=== PATIENT | male | born 1955 | race Two or more races ===

== ENCOUNTER 2023-09-12 19:56 | Emergency (ER) | payer OTHER, MEDICARE, SELFPAY ==
[2023-09-12 19:58] VITALS: BP 175/90
[2023-09-12 20:55] VITALS: BMI 36.5
--- NOTE | 2023-09-12 21:19 | ED.GENMED ---
History of Present Illness
General
Chief Complaint: Musculo-Skeletal Complaint
Source: patient
Exam Limitations: none
Time Seen by Provider: 09/12/23 20:43
History of Present Illness
History of Present Illness:
This is a 68 year old male that comes in with c/o right leg heaviness. State that he took a nap and when he got up his right leg felt heavy. States that the skin is tight and his leg is swollen. States that he has pain in the right lower back area
that goes into his buttocks and down the leg. Son states that patient has had this in the past and he had a blood clot. Patient is not on any blood thinners. Denies any fever, chills, chest pain, SOB, abd pain, nausea, vomiting, diarrhea, headache,
dizziness, urinary burning.
Past History
Past History
ED Past Medical History: HTN and Other (Chronic back pain, PE)
ED Past Surgical History: None
Social History
Tobacco: Non-smoker
Alcohol: None
Personal:
Living: with family
Family History
Family History: Negative Diabetes, Hypertension, Early CAD, Asthma or Cancer
Review of Systems
Review of Systems
All Other Systems: ROS reviewed and negative except as documented in HPI and ROS
Constitutional: Reports no symptoms; Denies fever or chills
EENT: Reports no symptoms
Respiratory: Reports no symptoms; Denies cough or trouble breathing
Cardiac: Reports no symptoms; Denies chest pain
ABD/GI: Reports no symptoms; Denies abdominal pain, nausea, vomiting or diarrhea
: Reports no symptoms; Denies dysuria, frequency or urgency
Musculoskeletal: Reports other (Right leg swelling)
Skin: Reports other (Right leg slightly darker then left)
Neurological: Reports no symptoms; Denies dizzy or headache
Psychiatric: Reports no symptoms
Phy Exam
General Physical Exam
General Presentation: well appearing and no apparent distress
General age: appears stated age
General Skin: warm and dry
General Habitus: normal
General Mental: alert
General Hydration: appears well hydrated
ENT Exam
ENT Exam: TM's normal, pharynx normal and neck supple
Eye Exam
Eye Exam: EOMI
Cardiovascular Exam
Cardiovascular Exam: regular rate/rhythm and normal peripheral pulses
Pulmonary Exam
Pulmonary Exam: lungs clear, no respiratory distress, no rales, chest non tender, no crackles, no rhonchi, no wheezing and no cough
Gastrointestinal Exam
Gastrointestinal Exam: normal bowel sounds, non tender, soft, no organomegaly, no pulsatile mass, non distended and other (Obese)
Musculoskeletal Exam
Musculoskeletal Exam: full ROM and other (Right leg swelling noted nonpitting. )
Skin Exam
Skin Exam: normal color, warm/dry, no petechia and other (right leg slightly darker in color then the left, warm to touch)
Psychiatric Exam
Psychiatric Exam: normal mood/affect
Course
Orders/Labs/Results
Orders:
Orders
09/12/23 21:18
US Legs, Right [US Periph Venous LOWER Ext RT] Urgent
Comment:
Reason For Exam: Right leg heaviness and swelling
09/12/23 21:19
Complete Blood Count/With Diff Urgent
Comprehensive Metabolic Panel Urgent
Prothrombin Time Urgent
Abnormal Lab Results
09/12/23
21:19
Potassium 5.3 H mmol/L
(3.5-5.1)
Chloride 97 L mmol/L
(98-107)
BUN 22 H mg/dl
(9-20)
Glucose 349 H mg/dl
(70-99)
ALT 68 H U/L
(0-50)
09/12/23 21:19
09/12/23 21:19
Hyperkalemia, Chloride slightly low. Hyperglycemia, ALT elevation. PT 12.7 with INR 0.97
Vital Signs
Initial and Last Documented VS:
Initial Vital Signs
Temp Pulse Resp BP Pulse Ox
98.1 F 77 18 175/90 99
09/12/23 19:58 09/12/23 19:58 09/12/23 19:58 09/12/23 19:58 09/12/23 19:58
Last Documented Vital Signs
Temp Pulse Resp BP Pulse Ox
98.1 F 77 18 175/90 99
09/12/23 19:58 09/12/23 19:58 09/12/23 19:58 09/12/23 19:58 09/12/23 19:58
MDM/Problems Addressed
Differential Diagnosis Includes:
DVT,
MDM/Problems Addressed:
This is a 68 year old male that comes in with c/o right leg heaviness and swelling. Son states that he has had this before when he had a DVT. There is very slight discoloration of the right leg and he feels that the skin is tight.
Will get labs and US.
Back into see patient and family. Explained that his US shows that he has a DVT of the right common femoral vein extending into the femoral vein to the level of the distal femoral vein. Will start patient on Eliquis and have him follow up with the
PCP in the next 2-3 days. Explained to patient that the first week he will be taking Eliquis 10mg BID and then this will be decreased to 5mg after the first Week BID. Patient to return with increased swelling or pain.
Chronic conditions affecting care:
History of DVT/PE
Acute Exacerbation and/or Progression of Chronic Illness:
DVT
*Radiology
Radiology exam reviewed: radiology read reviewed (US-Nonocclusive thrombus within the right common femoral vein extending into the femoral vein to the level of the distal femoral vein. Right popliteal vein is patent. Right profunda femoral vein is
patent. Patient visualized calf veins. )
*Pulse Oximetry
Patient hypoxic: no
*EKG
Interpreted by ED Provider?: NA
Rate: EKG- N/A
*Cardiac Care Nurse Interpretation
Rate: Cardiac Care Nurse- N/A
*Critical Care Note
Total Time (30-74mins, 75-104mins- exclusive of procedures): Not Applicable
ED Attending Note
-
Portions of this chart may have been created with voice recognition software.� Occasional wrong word or��sound alike� substitutions may have occurred due to the inherent limitations of voice recognition software.
Discharge Plan
Departure
Patient Disposition: Home (Routine Discharge)
Date of Disposition: 09/12/23
Time of Disposition: 23:47
Patient with high blood pressure during this ER visit?: Yes
Condition: Good
Covid-19: Not Applicable
Discharge Problem:
Right leg DVT
Instructions: Deep vein thrombosis (blood clot in the leg), BLOOD PRESSURE
Prescriptions:
New
Eliquis 5 mg tablet
10 mg PO BID 7 Days Qty: 28 0RF
No Action
hydrocodone-acetaminophen 1 EACH tablet
1 ea PO Q6HPRN PRN (Reason: pain)
lisinopril 10 MG tablet
10 mg PO HS
metoprolol tartrate 25 MG tablet
75 mg PO DAILY
hydroxyzine HCl 25 MG tablet
25 mg PO TIDPRN PRN (Reason: itching) Qty: 15 0RF
gabapentin 300 MG capsule
300 mg PO HS Qty: 30 0RF
metformin 500 MG tablet
500 mg PO BID Qty: 30 0RF
hydrocodone-acetaminophen 1 EACH tablet
1 ea PO Q6HPRN PRN (Reason: pain) Qty: 10 0RF
Referrals:
Camron Gutierrez MD [Family Provider] - Follow up in 2-3 days
Activity Restrictions/Additional Instructions:
As discussed, your blood work shows that you are a little dehydrated. Please increase your water intake to 8-8oz glasses daily. Your blood sugar is also elevated. Please take your Metformin as directed and follow up with your PCP for further
evaluation. Your US shows that your had a DVT in the femoral vein. You have been started on Eliquis. This is a blood thinner and your will take 10mg twice daily for the first 7 days. This prescription has been sent to your Pharmacy. Then the dose
will be decrease by your Primary care doctor to 5mg twice daily. Please follow up with the family doctor in the next 2-3 days for recheck. PLEASE DO NOT TAKE ANY ADVIL, ALEVE OR IBUPROFEN WITH THIS BLOOD THINNER. IF YOU HAVE ANY FALLS HITTING YOUR
HEAD YOU WILL ALSO NEED TO COME TO THE EMERGENCY FOR A CT OF THE HEAD. IF YOU HAVE INCREASED SWELLING PAIN OR YOU HAVE ANY OTHER CONCERNS PLEASE RETURN TO THE EMERGNCY ROOM.
Interventions
Interventions:
*Risk Screen - Suicide Last Done: 09/12/23 19:58
*General Assessment Last Done: 09/12/23 19:58
*Neglect/Abuse Screening Last Done: 09/12/23 21:22
ED- Fall Risk Assessment Last Done: 09/12/23 21:22
ED-Musculoskeletal Assessment Last Done: 09/12/23 21:22
Discharge Date and Time
Print Language: BARBADIAN
[2023-09-12 21:25] LABS: % Basophils 0.6 % (0-2); % Eosinophils 3.6 % (0-6); % Immature Granulocytes 0.3 % (0-0.5); % Monocytes 8.4 % (1.7-9.3); % Neutrophils 55.1 % (42.2-75.2); Absolute Eosinophils 0.2 10^3/uL (0-0.7); Absolute Lymphocytes 2.1 10^3/uL (1.2-3.4); Absolute Monocytes 0.6 10^3/uL (0.1-0.6); Absolute Neutrophils 3.7 10^3/uL (1.4-6.5); Hematocrit 41.3 % (39.0-52.0); Hemoglobin 14.4 g/dL (13.0-18.0); Mean Corp Hgb Conc. 34.9 g/dL (33.0-37.0); Mean Corpuscular Hgb 30.6 pg (27.0-31.0); Mean Corpuscular Volume 87.7 fL (80.0-94.0); Mean Platelet Volume 9.4 fL (7.4-10.4); Nucleated Red Blood Cells % 0 % (-); Platelet Count 181 10^3/uL (130-400); Red Blood Cell Count 4.71 10^6/uL (4.70-6.10); Red Cell Dist. Width 12.5 % (11.5-14.5); White Blood Cell Count 6.7 10^3/uL (4.8-10.8)
[2023-09-12 21:35] LABS: INR 0.97; PT 12.7 Sec (11.4-14.6)
[2023-09-12 21:46] LABS: ALT (SGPT) 68 U/L (0-50); AST (SGOT) 44 U/L (17-59); Albumin 4.7 g/dl (3.5-5.0); Alkaline Phosphatase 67 U/L (38-126); Blood Urea Nitrogen 22 mg/dl (9-20); Calcium 9.8 mg/dl (8.4-10.2); Carbon Dioxide 29 mmol/L (22-30); Chloride 97 mmol/L (98-107); Estimated Creatinine Clearance 104 ml/min; Glucose 349 mg/dl (70-99); Potassium 5.3 mmol/L (3.5-5.1); Sodium 137 mmol/L (135-145); Total Bilirubin 0.6 mg/dl (0.2-1.3); eGFR > 60.00
[2023-09-12] MEDS: ELIQUIS 10 MG PO (23:47)
== END 2023-09-13 00:02 | disposition home or self-care (01) ==
LOC: EMR 19:56
PROVIDERS: Clinical Nurse Specialist Family Health; EMERGENCY PHYSICIAN Student in an Organized Health Care Education/Training Program; FAMILY PHYSICIAN Family Medicine
DX: I82.401 Acute embolism and thrombosis of unspecified deep veins of right lower extremity (principal); I10 Essential (primary) hypertension; E87.5 Hyperkalemia; G89.29 Other chronic pain; R60.0 Localized edema; Z79.01 Long term (current) use of anticoagulants; Z82.49 Family history of ischemic heart disease and other diseases of the circulatory system; Z86.711 Personal history of pulmonary embolism; Z86.718 Personal history of other venous thrombosis and embolism
CPT/HCPCS: 99284; 80053; 85025; 85610; 93971

== ENCOUNTER 2023-09-14 20:18 | Inpatient (IN) | payer MEDICARE, OTHER, SELFPAY ==
[2023-09-14 13:27] VITALS: BP 149/90
--- NOTE | 2023-09-14 16:35 | W.PN.UPDATE ---
Update Note
Progress Note Update
Seen and evaluated in ED. Full c/s to follow.
68yo male with hx prior LLE DVT/PE in 2019 - underwent CDT LLE and L iliac stents in 07/2019 here at (Dr. Portillo).
Now with acute R sided symptoms after waking up 09/12/23 (2 days ago). Unprovoked. Seen in ED - diagnosed with acute DVT. Started on Eliquis - d/c'd home.
Now with worsened R thigh and calf swelling - back to ED.
No left sided sx.
Exam/ Awake, alert, NAD.
Abd sost, ND, NT.
LLE soft, warm.
RLE moderate/sig thigh and calf edema. Full, but compressible/soft still. No phlegmasia. Motor/sensory intact. Slight difficutly flexing knee due to swelling.
Duplex reviewed - extensive RLE DVT (CFV and peripherally, and likley EIV involvement)
Plan/ Acute/subacute RLE DVT
-admit to hospitalist
-start heparin drip
-CT venogram to assess iliac veins (consider CTA chest also - per ER provider noted tachycardia-- though patient denies any chest sx)
-likely will plan venogram/thrombolysis tomorrow -- NPO after midnight. Discussed with patient and family procedure LLE ascending venogram/CDT/pharmacomechanical thrombectomy/aspiration thrombectomy. Likely favor CDT (catheter directed
thrombolysis). Discussed likely ICU admission after if continued CDT. Discussed bleeding risks. No contraindications to thrombolysis (no strokes, intracranial bleeds, aneurysms, recent major surgeries, GI/ bleeds). Risks/benefits/alternatives
discussed (alternative of conservative management with anticoag/compression alone). They understand all and wish to proceed if needed (pending CTV results).
[2023-09-14 16:43] LABS: % Basophils 0.6 % (0-2); % Eosinophils 2.5 % (0-6); % Immature Granulocytes 0.3 % (0-0.5); % Lymphocytes 35.4 % (20.5-51.1); % Monocytes 8.5 % (1.7-9.3); % Neutrophils 52.7 % (42.2-75.2); Absolute Eosinophils 0.2 10^3/uL (0-0.7); Absolute Lymphocytes 2.5 10^3/uL (1.2-3.4); Absolute Monocytes 0.6 10^3/uL (0.1-0.6); Absolute Neutrophils 3.7 10^3/uL (1.4-6.5); Hematocrit 42.8 % (39.0-52.0); Hemoglobin 14.4 g/dL (13.0-18.0); Mean Corp Hgb Conc. 33.6 g/dL (33.0-37.0); Mean Corpuscular Hgb 30.3 pg (27.0-31.0); Mean Corpuscular Volume 89.9 fL (80.0-94.0); Mean Platelet Volume 9.3 fL (7.4-10.4); Nucleated Red Blood Cells % 0 % (-); Platelet Count 189 10^3/uL (130-400); Red Blood Cell Count 4.76 10^6/uL (4.70-6.10); Red Cell Dist. Width 12.1 % (11.5-14.5); White Blood Cell Count 7.1 10^3/uL (4.8-10.8)
[2023-09-14 16:56] VITALS: BMI 35.7
[2023-09-14 16:56] LABS: Blood Urea Nitrogen 20 mg/dl (9-20); Calcium 10.1 mg/dl (8.4-10.2); Carbon Dioxide 28 mmol/L (22-30); Chloride 95 mmol/L (98-107); Estimated Creatinine Clearance > 125 ml/min; Glucose 287 mg/dl (70-99); Potassium 5.9 mmol/L (3.5-5.1); Sodium 132 mmol/L (135-145); eGFR > 60.00
[2023-09-14 17:03] LABS: INR 1.25; PT 15.5 Sec (11.4-14.6)
[2023-09-14 17:04] LABS: APTT 29.1 Sec (23.4-35.0)
--- NOTE | 2023-09-14 17:11 | ED.GENMED ---
History of Present Illness
General
Chief Complaint: DVT/Possible Blood Clot
Source: patient, spouse and family
Time Seen by Provider: 09/14/23 15:17
History of Present Illness
History of Present Illness:
68-year-old male with past medical history of unprovoked DVT and PE back in 2019 presenting to the emergency department for evaluation after he was diagnosed with a DVT to his right lower extremity this past Thursday, discharged on Eliquis but
continues with worsening pain and swelling to the right leg prompting him to come back to the ER today. Patient states that at home he does have pain while attempting to ambulate and also notes he feels a little bit fatigued while ambulating. He
denies any cough, chest pain, pleurisy, palpitations, diaphoresis or any other present concerns. Patient is unable to tell me much about his previous DVT and PE and does not remember which leg he previously had the DVT in. He denies any smoking
history, recent travel, history of cancer, family history of DVT/PE, recent surgeries or any other anticoagulant use other than the Eliquis. He notes that following his previous DVT and PE he had been taken off of his anticoagulants and has not
been on any since he was diagnosed this past Thursday.
Past History
Past History
ED Past Medical History: HTN and Other (Chronic back pain, PE)
ED Past Surgical History: None
Social History
Tobacco: Non-smoker
Alcohol: None
Drug: None
Personal:
Living: with family
Family History
Family History: Negative Diabetes, Hypertension, Early CAD, Asthma or Cancer
Review of Systems
Review of Systems
All Other Systems: ROS reviewed and negative except as documented in HPI and ROS
Phy Exam
Physical Exam
Physical Exam:
GENERAL: Alert , in no apparent distress
EYE: conjunctiva clear
NECK: Supple, no significant adenopathy.
ENT: o/p clr, mmm.
CARDIAC: Borderline tachycardic rate and rhythm
LUNGS: Clear breath sounds bilaterally, no acute respiratory distress, no wheezes/rales/rhonchi
NEUROLOGICAL: Alert and oriented
SKIN: Warm and dry, skin intact.
MUSCULOSKELETAL: Right lower extremity does have moderate edema from the foot extending upwards through the thigh. There is palpable pedal and tibial pulses bilateral. Cap refill less than 2 seconds sensation is grossly intact to light touch.
PSYCH: Normal and appropriate interaction.
Scores
Heart Failure Risk
Heart Failure Risk Score: Not Applicable
Heart Score for Chest Pain Patients
STEMI patient?: Not applicable
Withdrawal Assessment of Alcohol
Withdrawal Assessment Completed?: Not applicable
Course
Orders/Labs/Results
Orders:
Orders
09/14/23 13:33
US Periph Venous LOWER Ext RT Urgent
Comment:
Reason For Exam: DVT
09/14/23 16:17
CT Pe/abd/pel W Urgent
Reason For Exam: known DVT, tachy
09/14/23 16:38
Basic Metabolic Panel Urgent
Complete Blood Count/With Diff Urgent
PTT Urgent
Prothrombin Time Urgent
09/14/23 16:[address] Non Medication Order As Directed
Physician Order: PTT 6 hours after initial start of Heparin infusion
Above order entered?: Yes
09/14/23 16:59
Electrocardiogram (*1) Urgent
Reason for Study: Tachycardia
EKG- Treatment ONCE
09/14/23 17:00
Heparin 32802 Units/250 ml 25,000 units in 250 ml IV PER PROTOCOL
Weight to be used for heparin protocol in kilograms (kg):: 112.7
Protocol:: DVT/PE
PTT Goal Range to be used:: PTT 73 to 111 seconds
Order type:: Initial
INITIAL Infusion Dose (UNITS/KG/hr) & then follow protocol:: 18 units/kg/hr
Infusion Dose in UNITS/hr & then follow protocol (UNITS/hr):: 2,000
INFUSION RATE in mL/hr & then follow protocol (mL/hr):: 20
For DVT/PE algorithm, re-bolus for low PTT?: No
PTT less than or equal to 64 seconds:: No Re-bolus. Increase by 500 units/hr (+ 5mL/hr)
PTT 64.1 to 72.9 seconds:: No Re-bolus. Increase by 200 units/hr (+ 2mL/hr)
PTT 73 to 111 seconds:: Target Range. No change in rate.
PTT 111.1 to 130.9 seconds:: Decrease rate by 200 units/hr (- 2 mL/hr)
PTT 131 to 199.9 seconds:: HOLD for 1 hr. Then decrease by 400 units/hr (- 4mL/hr)
PTT greater than or equal to 200 seconds:: HOLD for 2 hrs & Notify Provider. Then decrease by 500 units/hr
(- 5mL/hr)
Lab follow-up:: Each change, PTT q6h until 2 consecutive are therapeutic. Then
PTT daily.
09/14/23 19:06
Sodium Zirconium Cyclosilicate [Lokelma] 5 gram PO NOW STA
09/14/23 19:18
Admit/Transfer Patient As Directed
Co-Sign Provider:
Level of Care: Inpatient admission
Assign to:: ICU
Physician / Group: radha berry
Diagnosis: right leg dvt , acute RLL pe, prior dvt/pe, hyperk, dm2
Reason for Hospitalization: right leg dvt , acute RLL pe, prior dvt/pe, hyperk, dm2
Expected length of stay greater than two midnights?: Yes
ELOS- Estimated Length of Stay in days: 4
I certify the patient meets the requirements for IP care: Yes
Code Status As Directed
Resuscitation Status: Full Code
09/14/23 19:24
Consult Vascular Surgery [Vascular Surgery Consult] Routine
Consulting Provider: Denzel Harry
Was physician already notified: Yes
Reason for consult: right leg dvt, rll pe
09/14/23 22:00
Insulin Glargine Lantus [Lantus] 10 units Subcutaneous Insulin Syringe [Syringe-Insulin] 0 unit SC HS
09/14/23 23:47
PTT Circulating Anticoag Routine
Comment: FOR IV HEPARIN GTT
Abnormal Lab Results
09/14/23
16:38
PT 15.5 H Sec
(11.4-14.6)
Sodium 132 L mmol/L
(135-145)
Potassium 5.9 H mmol/L
(3.5-5.1)
Chloride 95 L mmol/L
(98-107)
Glucose 287 H mg/dl
(70-99)
09/14/23 16:38
09/14/23 16:38
Vital Signs
Initial and Last Documented VS:
Initial Vital Signs
Temp Pulse Resp BP Pulse Ox
99.2 F 103 20 149/90 100
09/14/23 13:27 09/14/23 13:27 09/14/23 13:27 09/14/23 13:27 09/14/23 13:27
Last Documented Vital Signs
Temp Pulse Resp BP Pulse Ox
99.2 F 97 20 141/75 97
09/14/23 13:27 09/14/23 17:50 09/14/23 17:50 09/14/23 17:50 09/14/23 17:50
MDM/Problems Addressed
Differential Diagnosis Includes:
Worsening DVT despite anticoagulation, PE, compartment syndrome
MDM/Problems Addressed:
68-year-old male presenting emergency department for evaluation of worsening right lower extremity edema in the setting of a recently diagnosed DVT 2 days ago. Patient on Eliquis presently and reports good compliance with this. History of DVT/PE
in the past requiring admission. Based off of record review patient had a left lower extremity DVT status post catheter directed thrombolysis and bilateral pulmonary embolism. He was ultimately discharged home on anticoagulants and was recommended
to have outpatient follow-up. Presently he did arrive slightly tachycardic and is noting fatigue while ambulating. Ultrasound was ordered from triage and still showed DVT however it was noted on this ultrasound that patient had clot burden within
the external iliac vein which was not fully evaluated on the ultrasound this past Thursday. I contacted vascular surgery on-call, Dr. Harry, who is recommending obtaining CTA of the chest as well as CT venogram to further evaluate the clot burden.
Recommends admission with heparin. Plan will be to take patient to the OR tomorrow for catheter directed thrombolysis. Will admit to hospitalist team pending his CT results.
*Radiology
Radiology exam reviewed: radiology read reviewed
*Pulse Oximetry
Patient hypoxic: no
*EKG
Interpreted by ED Provider?: Yes
Comparison EKG: changes noted
Heart Rate: 106
Rate: tachycardiac
Rhythm: sinus
Ischemia: T-wave inversion (lateral leads)
*Critical Care Note
Total Time (30-74mins, 75-104mins- exclusive of procedures): 30
comment:
Critical care statement: A total of 30 minutes of critical care time was provided for this patient. This includes management of unstable vital signs, evaluation of the patient at bedside, reviewing the patient's pertinent medical records, discussion
with consultants, review of old EKGs and review of pertinent medical records. This time with separate from time utilized to perform the aforementioned documented procedures
Data Reviewed
Review of Other/Old Records Reveals: Records and Radiology Studies
Patient Management
Discussion with other providers: Hospitalist and Network Solutions Architect
Escalation/DeEscalation of care consider admission/obs:
Hospitalist team is aware and accepts patient for continued evaluation and treatment. Potassium findings were noted and I suspect this is due to hemolysis given patient's normal renal function
ED Attending Note
-
Portions of this chart may have been created with voice recognition software.� Occasional wrong word or��sound alike� substitutions may have occurred due to the inherent limitations of voice recognition software.
Discharge Plan
Departure
Patient Disposition: Admit
Date of Disposition: 09/14/23
Time of Disposition: 18:21
Presentation/result/management discussed w/ accepting MD/DO: Hospitalist
Discharge Problem:
Acute deep vein thrombosis (DVT) of right lower extremity
Prescriptions:
No Action
metoprolol tartrate 25 MG tablet
25 mg PO BID
Eliquis 5 mg tablet
10 mg PO BID 7 Days Qty: 28 0RF
Patient Comments:
09/14/2023, 10 mg BID for 7 days and then decrease to 5 mg.
hydrocodone-acetaminophen 5-325 mg Tablet
1 tab PO Q6H PRN (Reason: moderate pain)
lisinopril 20 mg Tablet
20 mg PO DAILY
Theragen Tablet
1 tab PO DAILY
capsaicin 0.025 % Cream
1 applic TOPICAL BID
duloxetine 60 mg Capsule,Delayed Release(Dr/Ec)
60 mg PO DAILY
Fish Oil 2,400 mg capsule
1 cap PO DAILY
[place] 3 2,500 mg capsule
1 cap PO DAILY
gabapentin 300 MG capsule
300 mg PO BID
Referrals:
Camron Gutierrez MD [Family Provider] -
Interventions
Interventions:
*Risk Screen - Suicide Last Done: 09/14/23 13:27
*General Assessment Last Done: 09/14/23 13:27
*Neglect/Abuse Screening Last Done: 09/14/23 13:27
*ED COVID-19 Vaccine History Last Done: 09/14/23 13:27
ED- Cardiac Assessment Last Done: 09/14/23 15:12
ED- Pulmonary Assessment Last Done: 09/14/23 15:12
ED-Peripheral Vascular Assessment Last Done: 09/14/23 15:45
ED-Skin Assessment Last Done: 09/14/23 15:12
Discharge Date and Time
Print Language: FAROESE
[2023-09-14] MEDS: HEPARIN 25000 UNITS/250 ML IV (17:47)
[2023-09-14 17:50] VITALS: BP 141/75
--- NOTE | 2023-09-14 18:38 | HPS.HSE ---
Addendum entered and electronically signed by LISETTE Choe 09/14/23 20:00:
Radiology update CT
Extensive diffuse acute occlusive deep venous thrombosis throughout the iliac and femoral veins bilaterally
Original Note:
Family Physician
-
Family Physician: Camron Gutierrez
Chief Complaint
-
Right lower extremity swelling, pain, no DVT
History of Present Illness
68-year-old male who was seen in the ER on Thursday 3 days ago noted to have DVT of his right lower extremity and was placed on oral Eliquis Of which she took 4 doses 10 mg each he returns today for worsening pain and swelling to his right leg
extending to right upper thigh along with fatigue with ambulation. He denies any injury. He has past medical history of unprovoked DVT left leg with bilateral PE in 2019. He reports he was on AC therapy for approximately 6 months. He denies any
outpatient hematological workup no family history of DVT/PEs or blood clotting disorders. He denies chest pain, palpitations, shortness breath, cough, abdominal pain, nausea vomiting diarrhea, urinary symptoms. Other past medical history includes
hypertension, chronic back pain.
Medical History
Past Medical History
Past Medical History: Reports Other
Additional Past Medical History:
unprovoked DVT left leg with bilateral PE in 2019
HTN
Chronic back pain
DDD lumbar spine
Dm2
Past Surgical History: Reports None
Social History
Tobacco: Non-smoker
Alcohol: None
Drug: None
Personal:
Living: With Family
Employment: Retired
Family History
Family History: Other (No family history cancer DVT or PEs)
Allergies / Home Medications
Allergies reflects when Allergies were last updated in [facility].
Home Medications with original date entered in [facility]
Allergy/Medication List:
Allergies
Allergy/AdvReac Type Severity Reaction Status Date / Time
No Known Allergies Allergy Verified 09/12/23 19:58
Home Medications
metoprolol tartrate 25 mg tablet 25 mg PO BID Blood Pressure 07/22/19
apixaban 5 mg tablet (Eliquis) 10 mg (2 x 5 mg) PO BID DVT 7 days #28 tabs 09/12/23
Fish Oil 1 cap PO DAILY Supplement 09/14/23
[place] 3 1 cap PO DAILY Supplement 09/14/23
capsaicin 0.025 % topical cream 1 applic topical BID right foot 09/14/23
duloxetine 60 mg capsule,delayed release 60 mg PO DAILY Mental Health 09/14/23
gabapentin 300 mg capsule 300 mg PO BID Pain 09/14/23
hydrocodone 5 mg-acetaminophen 325 mg tablet 1 tab PO Q6H PRN moderate pain 09/14/23
lisinopril 20 mg tablet 20 mg PO DAILY Blood Pressure 09/14/23
therapeutic multivitamin 1 tab PO DAILY Supplement 09/14/23
Review of Systems
-
History Source: Patient and Family ( at bedside)
A 12 point ROS was completed and negative except as noted: Yes
Constitutional: Denies Fever or Chills
EENT: Denies Sore Throat or Runny Nose
Respiratory: Denies Cough or Trouble Breathing
Cardiac: Denies Chest Pain, Palpitations or Syncope
Abdomen/GI: Denies Abdominal Pain, Nausea, Vomiting, Diarrhea, Constipated, Bloody Stools or Black Stools
: Denies Dysuria, Frequency, Flank Pain, Incontinence, Difficulty Voiding or Urgency
Musculoskeletal: Reports Edema (From right thigh to lower foot); Denies Joint Pain
Skin: Denies Itching or Rash
Neurological: Denies Dizzy, Headache or Weakness
Endocrine: Reports No Symptoms
Psych: Reports Calm
Physical Exam
Vital Signs
Vital Signs
Temp Pulse Resp BP Pulse Ox
99.2 F 97 20 141/75 97
09/14/23 13:27 09/14/23 17:50 09/14/23 17:50 09/14/23 17:50 09/14/23 17:50
Physical Exam
General: Conversant; No Fever or Chills
HEENT: NormoCephalic, Anicteric, Moist mucous membranes, PERRLA, [place] Conjunctivae and No Ptosis
Respiratory: Clear; No Wheezes, Rales or Rhonchi
Cardiac: S1/S2, Regular Rhythm and Peripheral Edema (right thigh to lower leg ); No Murmur, Rub or Gallop
Breast: Deferred by me
GI: Soft, Non Tender, Non Distended, Normal Bowel Sounds and No Hepatosplenomegaly
Rectal: Deferred by Provider
Genito-urinary: Deferred by me
Musculoskeletal: No Clubbing, No Cyanosis and Edema, Right Lower Extremity (+2-3 right thigh to right lower leg ); No Edema, Left Upper Extremity, Edema, Right Upper Extremity or Edema, Left Lower Extremity
Skin: Warm and Dry; No Rash
Neuro: AO x 3, No Motor Deficits, Nonfocal/grossly intact, Cranial Nerves Intact and No Sensory Deficits; No Slurred Speech, Facial Droop or Tremors
Psych: Calm
Laboratory Results
-
09/14/23 16:38
09/14/23 16:38
Laboratory Results
PT 15.5 Sec (11.4-14.6) H 09/14/23 16:38
INR 1.25 09/14/23 16:38
APTT 29.1 Sec (23.4-35.0) 09/14/23 16:38
Data Reviewed
-
CT Scan: Report Reviewed by me
Lab Data: Labs Reviewed by me
Impression/Plan
-
Impression/plan:
Admit to ICU
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
#Hx DVT/bilateral PE 2020 unprovoked
Dx 3 days ago has been on oral Eliquis
-Consult vascular surgery
-N.p.o. for thrombolysis tomorrow in a.m.
-IV heparin drip
Venous Doppler right lower extremity: 1 nearly occlusive acute DVT external iliac vein through posterior tibial vein
Chest CTA: Small chronic pulmonary arterial embolus in the right lower lobe
2. Mild to moderate bilateral lower lobes subsegmental atelectasis and scarring
3. Multinodular thyroid goiter
CT abdomen pelvis: 1 severe diffuse hepatic steatosis
2. Previous cholecystectomy
3. Moderately enlarged prostate gland
4. Moderate DDD L3/L4 and L4-L5
5. No CT evidence of acute deep venous thrombosis
#Acute hyperkalemia
K5.9
Hold lisinopril 20 mg daily
-Will give Lokelma 5gm now
-Check EKG
#Acute hyperglycemia untreated pre-existing DM2
Reports was on prior metformin many years ago but stopped
BS 287, check HgbA1c
-Will give Lantus 10 units at bedtime and SSI
-Accu-Cheks with SSI
-Will start diabetic diet after surgery tomorrow
#Incidental multinodular thyroid goiter on CT chest
Check TSH with free T4
-Follow-up outpatient with PCP
#HTN�benign
-Continue metoprolol tartrate 25 mg twice daily
-Hold lisinopril 20 mg daily
#Chronic back pain/DDD lumbar spine
-Continue Cymbalta 60 mg daily, hydrocodone/acetaminophen 1 tab every 6 hours as needed
#Obesity due to excess calorie consumption�BMI 35.7 kg
Weight loss recommended also due to fatty liver
Low-fat healthy heart diabetic diet
Full code
[2023-09-14] MEDS: LOKELMA 5 GRAM PO (19:20)
--- NOTE | 2023-09-14 19:23 | W.PN.UPDATE ---
Update Note
Progress Note Update
This is an addendum to the H&P written by Aspen Weinstein on 09/14/2023. Patient seen examined independently with CNP.
68-year-old male past medical history prior diabetes no longer on medication, prior DVT of left lower extremity/PE in 2019 possibly secondary to COVID, hypertension, chronic back pain, diagnosed with right lower extremity pain/swelling on 09/11
started on Eliquis back again for worsening symptoms. Venous ultrasound shows nearly occlusive acute DVT of the external iliac vein through the posterior tibial vein. CT PE/abdomen/pelvis shows small chronic pulmonary arterial embolus in the right
lower lobe.
N.p.o. postmidnight for thrombolysis tomorrow as per vascular. Heparin drip.
Patient with hyperglycemia secondary to likely untreated diabetes. Also hypokalemic secondary to lisinopril. Hold lisinopril. Lokelma dose to be given. Check A1c, Lantus 10 units are, insulin sliding scale.
[2023-09-14 20:43] VITALS: BP 137/67
[2023-09-14 20:46] VITALS: BMI 37.2
[2023-09-14 21:00] VITALS: BP 134/83
--- NOTE | 2023-09-14 21:01 | PTCARENOTE ---
Pt Aox3, VSS, room air 97%, NSR on monitor, denies pain just some tenderness in right calf. Right leg +3 swelling, Doppler pulses. Heparin gtt infusing at 2000units/20mls. Skin is intact. Pt family at bedside, offers no complaints at this time, plan
of care on going.
[2023-09-14 22:00] VITALS: BP 134/73
[2023-09-14 23:00] VITALS: BP 152/67
[2023-09-14] MEDS: NEURONTIN 300 MG PO (23:08)
[2023-09-14] MEDS: LOPRESSOR 25 MG PO (23:08)
[2023-09-14 23:34] LABS: Glucose - Point of Care 368 mg/dl (70-99)
[2023-09-14] MEDS: LANTUS 0.100000000000000006 UNITS SC (23:54)
[2023-09-14] MEDS: NOVOLOG FLEXPEN 5 UNITS SC (23:55)
[2023-09-15] VITALS (22 sets, daily range): BP systolic 106–167; BP diastolic 43–96; PULSE 73–79; O2SAT 95–97; BMI 37.2
--- NOTE | 2023-09-15 00:23 | PTCARENOTE ---
Assessment unchanged, Heparin per protocol. additional IV placed in right hand. BG 368, 5units NovoLog given along with scheduled Lantus.
[2023-09-15 00:38] LABS: APTT 55.1 Sec (23.4-35.0)
[2023-09-15] MEDS: HEPARIN 25000 UNITS/250 ML IV ×2 (05:43→16:04)
[2023-09-15 06:07] LABS: % Basophils 0.7 % (0-2); % Eosinophils 3.3 % (0-6); % Immature Granulocytes 0.4 % (0-0.5); % Lymphocytes 46.9 % (20.5-51.1); % Monocytes 8.4 % (1.7-9.3); % Neutrophils 40.3 % (42.2-75.2); Absolute Basophils 0.1 10^3/uL (0-0.2); Absolute Eosinophils 0.2 10^3/uL (0-0.7); Absolute Lymphocytes 3.4 10^3/uL (1.2-3.4); Absolute Monocytes 0.6 10^3/uL (0.1-0.6); Hematocrit 36.7 % (39.0-52.0); Hemoglobin 13.1 g/dL (13.0-18.0); Mean Corp Hgb Conc. 35.7 g/dL (33.0-37.0); Mean Corpuscular Hgb 30.9 pg (27.0-31.0); Mean Corpuscular Volume 86.6 fL (80.0-94.0); Mean Platelet Volume 9.5 fL (7.4-10.4); Nucleated Red Blood Cells % 0 % (-); Platelet Count 193 10^3/uL (130-400); Red Blood Cell Count 4.24 10^6/uL (4.70-6.10); Red Cell Dist. Width 12.4 % (11.5-14.5); White Blood Cell Count 7.3 10^3/uL (4.8-10.8)
[2023-09-15 06:08] LABS: Glucose - Point of Care 341 mg/dl (70-99)
[2023-09-15] MEDS: NOVOLOG FLEXPEN-LOW RESISTANCE 4 UNITS SC (06:16)
[2023-09-15 06:20] LABS: APTT 80.9 Sec (23.4-35.0)
[2023-09-15 06:43] LABS: Carbon Dioxide 24 mmol/L (22-30); Estimated Creatinine Clearance 115 ml/min; eGFR > 60.00
--- NOTE | 2023-09-15 07:19 | CON.INTV ---
Addendum entered and electronically signed by Shashi Varner MD 09/15/23 13:26:
Patient transferred out of ICU.
Patient did not follow-up with pulmonary after last PE/DVT in 2019 as recommended. Did not get follow-up imaging nor echocardiogram
Given the presentation, would strongly consider follow-up with pulmonary, consider VQ scan to rule out chronic thromboembolic process.
Strong suspicion of sleep apnea also noted. This was also reviewed at prior hospital stay
Follow-up information with pulmonary left in chart. Reviewed with patient at length
Pulmonary will follow briefly, echocardiogram pending
Original Note:
Consultation
Consultation Request
Date/Time Consultation Requested: 09/14
Date/Time Consultation Performed: 09/14
Reason for Consultation: Critical care
Medical History
-
History of Present Illness:
History obtained from the chart, hospital records, outpatient records and from the patient. 68-year-old Citizen Of [place] male with history of extensive unprovoked bilateral PE and left lower extremity DVT status post lower extremity lytic therapy per
vascular surgery July 2019. He now presents with persistent right lower extremity swelling, was evaluated in the ED 09/12/2023. He was found to have right lower extremity DVT, discharged on Eliquis but despite this, had worsening swelling and leg
pain bringing him back to the ED. Patient denies any chest pain, pleurisy, lightheadedness, dizziness, palpitations, shortness of breath. Upon arrival to [facility], temperature 99.2, pulse 103, breathing at 20, blood pressure 149/90, 100%
saturation. Workup revealed extensive right lower extremity DVT. Subsequent imaging confirmed extensive bilateral iliac and femoral DVT. Patient started on heparin drip. Of note, no right heart strain on imaging. Patient admitted to ICU for
further management
Of note, patient was seen by pulmonary 12/09/2019 after prior thrombotic episode. He was recommended to follow-up with imaging and Doppler study along with echocardiogram to determine long-term anticoagulation plans. He never did follow-up.
.
PMH: Hypertension, hypercholesterolemia, history of bilateral PE, DVT unprovoked 2020 requiring intra lytic therapy in the lower extremity, essential tremor, chronic back pain, strongly suspected sleep apnea
Past Medical History
Past Medical History: None (See above)
Past Surgical History: None (See above)
Social History
Tobacco: Former Smoker (Quit in 1979, likely [id number])
Alcohol: None
Drug: None
Personal:
Living: With Family
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
Family History
Family History: Other (2 children healthy. 3 siblings living in [place], healthy. No family history of blood clots. Mother at age 45 from unclear reasons, father at age 85)
Allergies / Home Medications
Allergies
Allergy/AdvReac Type Severity Reaction Status Date / Time
No Known Allergies Allergy Verified 09/12/23 19:58
Home Medications
�Medication �Instructions �Recorded �Confirmed �Last Taken �Type
metoprolol tartrate 25 mg tablet 25 mg PO BID Blood Pressure 07/22/19 09/14/23 09/14/23 History
apixaban 5 mg tablet (Eliquis) 10 mg (2 x 5 mg) PO BID DVT 7 days 09/12/23 09/14/23 09/14/23 Rx
#28 tabs
Fish Oil 1 cap PO DAILY Supplement 09/14/23 09/14/23 09/13/23 History
[place] 3 1 cap PO DAILY Supplement 09/14/23 09/14/23 09/13/23 History
capsaicin 0.025 % topical cream 1 applic topical BID right foot 09/14/23 09/14/23 09/13/23 History
duloxetine 60 mg capsule,delayed 60 mg PO DAILY Mental Health 09/14/23 09/14/23 09/14/23 History
release
gabapentin 300 mg capsule 300 mg PO BID Pain 09/14/23 09/14/23 09/14/23 History
hydrocodone 5 mg-acetaminophen 325 1 tab PO Q6H PRN moderate pain 09/14/23 09/14/23 09/14/23 History
mg tablet
lisinopril 20 mg tablet 20 mg PO DAILY Blood Pressure 09/14/23 09/14/23 09/14/23 History
therapeutic multivitamin 1 tab PO DAILY Supplement 09/14/23 09/14/23 09/13/23 History
Review of Systems
-
All other systems: Negative unless noted
Vitals / Labs / Diagnostic Testing
Vital Signs
Temp Pulse Resp BP Pulse Ox
98.3 F 70 31 126/66 97
09/15/23 07:09 09/15/23 05:30 09/15/23 05:30 09/15/23 05:00 09/15/23 05:30
Lab Data
09/15/23 05:58
09/15/23 05:58
Laboratory Results
09/14/23 09/15/23 09/15/23
16:38 00:15 05:58
PT 15.5 H
INR 1.25
APTT 29.1 55.1 H 80.9 H
Diagnostic Testing:
Physical Exam
-
HEENT: Normocephalic and Anicteric
Cardiovascular: S1/S2, Regular Rhythm, Murmur (n) and Rub (n)
Respiratory: Wheeze (n), Rales (n), Rhonchi (n) and Non-Labored Respirations
GI: Soft, Non Distended (Obese) and Non Tender
Neurology: Awake, Alert, Oriented and No Motor Deficits (Moves all extremities)
Skin: Good Color and Other (Right lower extremity bandage in place)
General: Comfortable
Assessment
-
68-year-old male with history of suspected unprovoked bilateral PE and DVT in 2019, on anticoagulation at that time, did not follow-up as recommended, now presents with progressive right lower extremity swelling after identification 09/10, treated
with Eliquis as an outpatient. Patient turned on heparin therapy. We are asked to help from critical care standpoint
Extensive bilateral DVT
Common iliac, external iliac, common femoral vein
Progressive symptoms x 1 week
Right lower lobe clot, suspected web appearing, possibly consistent with chronic embolus
No Rt heart strain
History of bilateral PE, extensive left lower extremity DVT
Status post lysis catheter placement left lower extremity 07/22/19
TPA/heparin infusion
Clot involving IVC R/L lobar pulmonary arteries, subsegmental artery, left common femoral, external iliac and common iliac vein
Did not follow-up with imaging thereafter
Sinus tachycardia, inferior Q-wave, nonspecific T wave changes
Mild hyponatremia
Conditions present prior to admission
Chronic back pain
Distant tobacco history
Suspected sleep disorder breathing
Mother at 45, unclear reasons
Sudden
Plan/recommendations
At this time, patient appears to be comfortable without acute symptoms
Reviewed extensive history in the past including multiple ER visits since his clot in 2019. He presented to the ED multiple times with lower extremity leg pain, Doppler studies at that time negative
Given imaging findings of extensive clot in the common iliac, femoral and external iliac, wonder if he has had pelvic clot chronically
Patient never did follow-up with imaging, repeat ultrasound, echocardiogram, CT imaging after his initial clot in 2019
Moving forward
Continue with heparin therapy
Patient will require lifelong anticoagulation
Given requirement for intra lytic therapy in 2020 and extensive clot, agree with vascular evaluation. Plan for possible intravascular lytic therapy per vascular surgery
Will follow post CDT therapy in the ICU
Patient aware of risks. Vascular following
Repeat EKG today post intra lytic therapy
Eventual echocardiogram
We'll check baseline d-dimer
Check proBNP
No evidence of RV strain per CT chest
Will likely require hematology evaluation either inpatient or outpatient
Reviewed with critical care nursing
TCCT 31 minutes
[2023-09-15] MEDS: LOPRESSOR 25 MG PO ×2 (07:25→21:12)
[2023-09-15] MEDS: THERAGRAN 1 TABLET PO (07:25)
[2023-09-15] MEDS: NEURONTIN 300 MG PO ×2 (07:25→21:11)
[2023-09-15] MEDS: CYMBALTA DELAYED RELEASE 60 MG PO (07:25)
--- NOTE | 2023-09-15 07:45 | CON.VAS ---
Addendum entered and electronically signed by Rashard Hoffman III, MD 09/15/23 10:49:
This patient was seen and examined with LISETTE Webber. I agree with the history and physical exam as well as the assessment and plan. I have the following additions:
Previous iliofemoral DVT unprovoked and treated with lysis and stenting in July 2019
On anticoagulation for period of time and then stopped
Recently diagnosed with right lower extremity DVT on duplex. Unprovoked. Was discharged from ED at time of diagnosis on oral anticoag.
Returned to the ED yesterday with increasing pain and swelling symptoms in the right leg
I personally reviewed the CT angiogram images. The left common iliac vein stent traverses the iliac vein confluence and is positioned in the distal IVC. The radiology report states no clear evidence of iliac vein DVT on the right and I agree that
I dont see any clear filling defects in the iliac veins on delayed phase..
On exam he has asymmetric right lower extremity edema. His thigh and calf are soft. There is no discoloration. He has palpable pedal pulses.
He is nontoxic and in no acute distress
Given the lack of iliac vein involvement on CT my preference is to treat this with systemic anticoagulation, compression and leg elevation without endovascular intervention/lysis/mechanical aspiration thrombectomy. If he improves with this strategy
we can transition him to oral anticoagulation and follow-up as an outpatient. If not we can re-consider endovascular intervention.
He should follow-up with hematology and I suspect will need long-term anticoagulation.
Will follow along peripherally. Call with questions or concerns
Signed: Rashard Hoffman III, MD
[facility]
[phone] ([email or web address])
Original Note:
Consultation
Consultation Request
Performing Provider: Yasmin
Reason for Consultation: DVT
Medical History
-
Chief Complaint: RLE swelling
History of Present Illness:
68 yo male with recent who was seen in our ER on Thursday for right leg heaviness and +DVT by US. Pt was placed on Eliquis at that time and sent home. Pt returned to ER last night for increasing swelling to the RLE. He has past medical history of
unprovoked DVT left leg with bilateral PE in 2019. He reports he was on AC therapy for approximately 6 months. He denies any outpatient hematological workup no family history of DVT/PEs or blood clotting disorders. Vascular consult for DVT.
Pt seen at bedside this am with Dr Hoffman. Pt appears comfortable in bed. Heparin gtt running. RLE is moderately edematous, no erythema. Right leg SASHA wrapped by us at bedside. Pt feels his swelling has not increased since admission.
Past Medical History
Past Medical History: HTN, IDDM and Other (unprovoked DVT left leg with bilateral PE in 2019, Chronic back pain, DDD lumbar spine)
Past Surgical History: Other (Iliac vein stent)
Social History
Tobacco: Non-Smoker
Alcohol: None
Drug: None
Personal:
Living: With Family
Employment: Retired
Family History
Family History: Reviewed & Not Pertinent
Allergies / Home Medications
Allergy/AdvReac Type Severity Reaction Status Date / Time
No Known Allergies Allergy Verified 09/12/23 19:58
�Medication �Instructions �Recorded �Confirmed �Type
metoprolol tartrate 25 mg tablet 25 mg PO BID Blood Pressure 07/22/19 09/14/23 History
apixaban 5 mg tablet (Eliquis) 10 mg (2 x 5 mg) PO BID DVT 7 days 09/12/23 09/14/23 Rx
#28 tabs
Fish Oil 1 cap PO DAILY Supplement 09/14/23 09/14/23 History
[place] 3 1 cap PO DAILY Supplement 09/14/23 09/14/23 History
capsaicin 0.025 % topical cream 1 applic topical BID right foot 09/14/23 09/14/23 History
duloxetine 60 mg capsule,delayed 60 mg PO DAILY Mental Health 09/14/23 09/14/23 History
release
gabapentin 300 mg capsule 300 mg PO BID Pain 09/14/23 09/14/23 History
hydrocodone 5 mg-acetaminophen 325 1 tab PO Q6H PRN moderate pain 09/14/23 09/14/23 History
mg tablet
lisinopril 20 mg tablet 20 mg PO DAILY Blood Pressure 09/14/23 09/14/23 History
therapeutic multivitamin 1 tab PO DAILY Supplement 09/14/23 09/14/23 History
Review of Systems
-
History Source: Patient
All other systems: Negative unless noted
Constitutional: Reports No Symptoms
EENT: Reports No Symptoms
Respiratory: Reports No Symptoms
Cardiac: Reports No Symptoms
Vascular: Denies Leg Pain / Claudication
Abdomen/GI: Reports No Symptoms
: Reports No Symptoms
Musculoskeletal: Reports Muscle Pain, Muscle Stiffness and Edema
Skin: Reports No Symptoms
Neurological: Reports No Symptoms
Physical Exam
Vital Signs
Temp Pulse Resp BP Pulse Ox
98.3 F 70 13 124/96 96
09/15/23 07:09 09/15/23 08:00 09/15/23 08:00 09/15/23 08:00 09/15/23 08:00
Lab Results
09/15/23 05:58
09/15/23 05:58
Physical Exam
General: No Apparent Distress
HEENT: Normocephalic and Atraumatic
Respiratory: Non Labored Respirations
Cardiac: Negative JVD
GI: Soft and Non Tender
Musculoskeletal: No Clubbing, No Cyanosis and Edema (RLE)
Skin: Warm
Neuro: Awake, Alert and Oriented
Psych: Calm
Assessment / Plan
-
68 yo male with RLE DVT, Hx of LLE DVT and PE
Plan:
-SASHA wrap compression, elevation
-Hep gtt
-Hematology consult
-Will re-evaluate tomorrow for possible lysis if not improving
Data Reviewed
-
CT Scan: Discussed with Patient
Labs: Labs Reviewed by me
[2023-09-15 07:54] LABS: Blood Urea Nitrogen 21 mg/dl (9-20); Calcium 9.7 mg/dl (8.4-10.2); Chloride 102 mmol/L (98-107); Glucose 332 mg/dl (70-99); Magnesium 1.9 mg/dl (1.6-2.3); Phosphorus 4.8 mg/dl (2.5-4.5); Potassium 5.1 mmol/L (3.5-5.1); Sodium 134 mmol/L (135-145)
--- NOTE | 2023-09-15 08:00 | PTCARENOTE ---
Patient received from security shift manager, presents as assessed. Patient is alert and oriented x3, pleasant. SR on telemetry. Edema to right lower extremity present. Patient maintains on room air. Abdomen round, distended, obese, non-tender to palpation.
Heparin drip infusing. Patient offers no complaints currently.
[2023-09-15 08:46] LABS: Glycohemoglobin (HgbA1c) 9.2 % (4.0-5.6)
[2023-09-15] MEDS: LANTUS 0.149999999999999994 UNITS SC ×2 (11:52→22:37)
[2023-09-15] MEDS: NOVOLOG FLEXPEN-HIGH RESISTANCE 7 UNITS SC ×2 (11:53→16:47)
[2023-09-15 12:03] LABS: Glucose - Point of Care 253 mg/dl (70-99)
[2023-09-15 12:08] LABS: APTT 101.1 Sec (23.4-35.0)
--- NOTE | 2023-09-15 12:41 | PN.DE.MGMTRT ---
Insulin Management
- -
09/15/2023: Diabetes management Consult:
68 year old male with a PMH: HTN, HLD, Obesity, hx of BLE PE, unprovoked DVT- 2020 requiring intra lytic therapy in the lower extremity, essential tremor, chronic back pain, strongly suspected sleep apnea and T2DM. Pt presented to the ED with
progressive RLE swelling while on OAC- Eliquis as an outpatient.
Of note, pt is supposed to be taking Metformin 500mg BID, however, there is concern for medication compliance.
Upon interview, pt reports that he was dx a few years ago but was not started on any diabetes medications. He was recently started on Metformin 500mg BID after he was identified with Hyperglycemia during one of the ER visits. He reports that he has
a glucose meter and has been monitoring his blood sugars once a day at Fasting. A1C 9.2%, Cr 0.8, eGFR>60
Pt awake, alert, oriented, resting in bed, having Echo done, Dtr- Yasmina at bedside. Pt offers no complaints, able to discuss diabetes mgt.
Glucose was 287 on admission, trended up to 368 @ HS, received Lantus 10 units and corrective insulin while NPO overnight.
His blood sugars have remained elevated, fasting 332 (V) this AM, received 4 units corrective.
Pre-lunch glucose was still elevated at 253, pt received 7 units of corrective insulin and was ordered Lantus 15 units, Januvia 100mg daily in addition to resuming Metformin at higher dose of 1000mg BID by Dr. England
Will start AC NovoLog 7 units in consideration of high A1C and persistent Hyperglycemia. Change diet to escobar controlled 1800
Will provide insulin instructions tomorrow. Pt has working meter at home as confirmed by Dtr at bedside
Diabetes History
- -
Type of Diabetes: 2 requiring insulin
Pre-Admission Diabetes Regimen
09/14/23 09/15/23
16:38 05:58
Creatinine 0.7 0.8
Lab Results
Hemoglobin A1c 9.2 % (4.0-5.6) H 09/15/23 05:58
Insulin Pump Settings
IP Diabetes Regimen
09/14/23 09/14/23 09/15/23
16:38 23:23 05:57
Glucose 287 H
POC Glucose 368 H 341 H
09/15/23 09/15/23
05:58 11:52
Glucose 332 H
POC Glucose 253 H
Patient Education
--- NOTE | 2023-09-15 12:41 | W.PN.HOSP.TC ---
Today's Communication/Plan
-
IV heparin
Adjusting diabetic regimen.
Assessment / Plan
Assessment / Plan
Impression:
Bilateral DVT.
Pulmonary embolism with likely chronic right lower lobe clot.
Prior history of bilateral PE and left lower extremity DVT requiring lytic treatment along with endovascular intervention with stent in place 2019. 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
Mild hyponatremia
Hyperkalemia
Other conditions:
Chronic back pain requiring opiates
Former tobacco smoker.
Suspected sleep apnea not on BiPAP
Plan:
Bilateral lower extremity DVT
Right lower lobe PE likely chronic
Doppler 09/11:Nonocclusive thrombus is present from the right common femoral vein through the distal right femoral vein.
Doppler 09/13 1. Nearly occlusive acute deep venous thrombosis from the external iliac vein through the posterior tibial vein.
2. Comparison with the prior study is limited, as the external iliac vein was not imaged on prior ultrasound. Consider CT venogram to evaluate the proximal extent of pelvic thrombus, as clinically appropriate.
Chest/abdomen/pelvis CTA:
1. 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
2. Mild to moderate bilateral lower lobe subsegmental atelectasis and scarring.
3. Mildly decreased bilateral lung volumes.
4. Multinodular thyroid goiter.
ABDOMEN and PELVIS:
1. No definitive CT evidence for acute deep venous thrombosis. Symmetric attenuation throughout the common iliac, external iliac, and common femoral veins without definitive evidence for focal intraluminal filling defect. Diffuse deep venous
thrombosis throughout the iliac and femoral veins is considered less likely.
2. Left external iliac vein stent in place.
3. Severe diffuse hepatic steatosis.
4. Previous cholecystectomy.
5. Moderately enlarged prostate gland.
6. Moderate discogenic degenerative disease at L3/L4 and L4/L5.
Vascular surgery consult appreciated
Clinically no evidence of limb ischemia, hemodynamic instability, hypoxia, RV strain on imaging.
No indication for thrombolytic or endovascular treatment at this point
Continue IV heparin for another 24 hours and monitor.
Likely transition back to oral anticoagulation with Eliquis on 09/15
Echocardiogram is pending
Diabetes, untreated
Hemoglobin A1c 9.2.
Patient has been treated with metformin, although reports not to take any oral medications or monitoring blood glucose for over 2 years.
Initiated on Lantus.
Start Januvia/metformin
Diabetic nurse practitioner consultation
Basal bolus insulin with adjustment of regimen prior to discharge
Hyperkalemia likely related to SASHA inhibitor shock
Hold lisinopril, status post Lokelma with improved potassium. Monitor
Essential hypertension continue metoprolol hold lisinopril due to hyperkalemia
Chronic back pain
Continue preadmission regimen including hydrocortisone/Tylenol
Anticipated Discharge: 24 - 48 hours
Subjective/Interval History
-
Date of Service: September 15, 2023
Objective Data
-
Labs:
Laboratory Results
09/15/23 09/15/23
05:58 11:42
WBC 7.3
Hgb 13.1
Hct 36.7 L
Plt Count 193
APTT 80.9 H 101.1 H
Sodium 134 L
Potassium 5.1
Chloride 102
Carbon Dioxide 24
BUN 21 H
Creatinine 0.8
Glucose 332 H
Calcium 9.7
Vital Signs:
Vital Signs
Temp Pulse Resp BP Pulse Ox
98.6 F 70 13 124/96 96
09/15/23 11:43 09/15/23 08:00 09/15/23 08:00 09/15/23 08:00 09/15/23 08:00
I&O
09/14/23 09/15/23 09/16/23
06:59 06:59 06:59
Intake Total 50 / 50
Output Total 900 / 900
Balance -900 / -900 50 / 50
Physical Exam
-
General: Well Developed and No Apparent Distress
HEENT: Normocephalic, Atraumatic and Moist Mucous Membranes
Respiratory: Clear to Auscultation
Cardiac: Regular Rhythm and S1/S2; Negative Murmur, Rub or Gallop
GI: Soft, Nontender, Nondistended and Normal Bowel Sounds; Negative Organomegaly
Rectal: Deferred by Provider
Musculoskeletal: No Clubbing, No Cyanosis, No Edema and Other (Right lower extremity edema)
Skin: Negative Rash
Neuro: Nonfocal/Grossly Intact
--- NOTE | 2023-09-15 15:52 | CM ---
CM following re: discharge planning.
Reviewed pt's chart, met with pt and pt's daughter at bedside.
Pt is a 68 year old male, admitted with primary dx of PE/DVT.
Pt reports he was born and grew up in [place], immigrated with family to [facility] [place] [place] in 1983, resided with spouse, daughter and a son in a 2SH, 3 steps to enter. 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 No DME, VN or SNF history.
PCP: Camron Gutierrez
Pharmacy: [facility]
D/C plan: home with anticipated no needs. Family to transport at discharge.
CM will follow with discharge plan updates as hospitalization progresses
--- NOTE | 2023-09-15 16:00 | PTCARENOTE ---
Patient assessment largely unchanged. Patient offers no complaints.
[2023-09-15] MEDS: GLUCOPHAGE 1000 MG PO (16:04)
[2023-09-15] MEDS: NOVOLOG FLEXPEN 7 UNITS SC (16:47)
[2023-09-15 16:54] LABS: Glucose - Point of Care 264 mg/dl (70-99)
[2023-09-15 22:35] LABS: Glucose - Point of Care 180 mg/dl (70-99)
[2023-09-16] MEDS: HEPARIN 25000 UNITS/250 ML IV ×2 (03:16→15:31)
[2023-09-16 03:45] VITALS: BP 143/64
[2023-09-16 05:44] LABS: % Basophils 0.8 % (0-2); % Eosinophils 3.7 % (0-6); % Immature Granulocytes 0.5 % (0-0.5); % Lymphocytes 41.9 % (20.5-51.1); % Monocytes 8.4 % (1.7-9.3); % Neutrophils 44.7 % (42.2-75.2); Absolute Basophils 0.1 10^3/uL (0-0.2); Absolute Eosinophils 0.3 10^3/uL (0-0.7); Absolute Lymphocytes 3.2 10^3/uL (1.2-3.4); Absolute Monocytes 0.6 10^3/uL (0.1-0.6); Absolute Neutrophils 3.4 10^3/uL (1.4-6.5); Hematocrit 37.1 % (39.0-52.0); Hemoglobin 13.1 g/dL (13.0-18.0); Mean Corp Hgb Conc. 35.3 g/dL (33.0-37.0); Mean Corpuscular Hgb 30.9 pg (27.0-31.0); Mean Corpuscular Volume 87.5 fL (80.0-94.0); Mean Platelet Volume 9.8 fL (7.4-10.4); Nucleated Red Blood Cells % 0 % (-); Platelet Count 198 10^3/uL (130-400); Red Blood Cell Count 4.24 10^6/uL (4.70-6.10); Red Cell Dist. Width 12.5 % (11.5-14.5); White Blood Cell Count 7.5 10^3/uL (4.8-10.8)
[2023-09-16 06:03] LABS: APTT 112.4 Sec (23.4-35.0)
[2023-09-16 06:28] LABS: Blood Urea Nitrogen 19 mg/dl (9-20); Calcium 9.8 mg/dl (8.4-10.2); Carbon Dioxide 26 mmol/L (22-30); Chloride 101 mmol/L (98-107); Estimated Creatinine Clearance > 125 ml/min; Glucose 249 mg/dl (70-99); Potassium 4.6 mmol/L (3.5-5.1); Sodium 135 mmol/L (135-145); eGFR > 60.00
--- NOTE | 2023-09-16 07:36 | W.PN.VS ---
Addendum entered and electronically signed by Denzel Harry MD 09/16/23 07:46:
Seen and examined with ROSALINA Ortiz. Agree with findings as noted below. Patient notes significant improvement in his right lower extremity discomfort/swelling/pain. On exam his right thigh and calf are much softer. No phlegmasia. Plan/as discussed
and noted below. Continue conservative management with anticoagulation and compression. As noted yesterday we will hold off on any catheter directed procedures given the lack of iliac vein involvement, and given improvement of symptoms.
Original Note:
Today's Communication / Plan
-
Patient seen and examined at bedside with Dr. Denzel Harry, below plan reviewed with attending
Assessment/Plan
-
Assessment: 68-year-old male with right lower extremity unprovoked DVT, no evidence on CT of DVT extending to iliac
Plan:
With patient reporting vast improvement in symptomatology of edema and heaviness sensation would not recommend proceeding with lysis
Patient should continue with compression, prescription left for thigh-high compression
Follow-up with hematology
Continue anticoagulation
We will sign off, call with questions or concerns
Subjective Data
-
Date of Service: September 16, 2023
Patient seen and examined at bedside, reports vast improvement in right lower extremity swelling and heaviness sensation with compression.
Objective Data
-
Vital Signs
Temp Pulse Resp BP Pulse Ox
97.4 F 78 20 143/64 98
09/16/23 03:45 09/16/23 03:45 09/16/23 03:45 09/16/23 03:45 09/16/23 03:45
Intake and Output
09/15/23 09/16/23 09/17/23
06:59 06:59 06:59
Intake Total 705 / 705
Output Total 900 / 900 325 / 325
Balance -900 / -900 380 / 380
Intake:
Oral fluids 480 / 480
IV fluids (Total) 225 / 225
heparin drip 225 / 225
Output:
Urine, Voided 900 / 900 325 / 325
Other:
Number of approximated MODERATE 2
amounts of urine
How many times incontinent 2
MODERATE amount urine
Lab Results
09/16/23 05:18
09/16/23 05:18
Calcium 9.8 mg/dl (8.4-10.2) 09/16/23 05:18
Phosphorus 4.8 mg/dl (2.5-4.5) H 09/15/23 05:58
Magnesium 1.9 mg/dl (1.6-2.3) 09/15/23 05:58
Physical Exam
-
No apparent distress, resting in bed comfortably
No tachycardia
No dyspnea on room air
Right lower extremity with trace edema, all compartments soft, bilateral feet warm
--- NOTE | 2023-09-16 07:43 | PN.DE.MGMTRT ---
Insulin Management
- -
09/16/2023: Diabetes management Consult Follow up
Patient admitted 09/13 RLE swelling, diffuse deep vein thrombosis. PMH: HTN, HLD, Obesity, hx of BLE PE, unprovoked DVT- 2019 requiring intra lytic therapy in the lower extremity, essential tremor, chronic back pain, strongly suspected sleep apnea
and T2DM. Was in ED for same 09/11 and started on Eliquis as outpatient.
Of note, pt is supposed to be taking Metformin 500mg BID, however, there is concern for medication compliance.
Upon interview, pt reports that he was dx a few years ago but was not started on any diabetes medications. He was recently started on Metformin 500mg BID after he was identified with Hyperglycemia during one of the ER visits. He reports that he has
a glucose meter and has been monitoring his blood sugars once a day at Fasting. A1C 9.2%, Cr 0.8, eGFR>60
Pt awake, alert, oriented, sitting up eating breakfast. Pt offers no complaints, able to discuss diabetes mgt.
Metformin 1000 started last evening with dinner, lantus increased to 15 units @ hs with AC novolog 7 units and Januvia 100 mg daily.
Diet changed to 1800 calorie
Instructed patient on steps for preparing and injecting insulin. Assisted patient with first injection on novolog, did fairly well, needs reinforcement. Home pen needles provided to nurse so patient can self inject with nursing supervision.
Provided printed instructions with pictures for home. Also provided diabetes education booklet and highlighted current A1C, actions of metformin and Januvia as well as new insulin novolog and lantus. Patient very receptive but states 'it is a
lot'.
Discussed with patients nurse.
Will make no change to current regimen, assess after full day of metformin and Januvia on board.
Pt has working meter at home.
Diabetes History
- -
Type of Diabetes: 2 requiring insulin
Pre-Admission Diabetes Regimen
09/16/23
05:18
Creatinine 0.7
Lab Results
Hemoglobin A1c 9.2 % (4.0-5.6) H 09/15/23 05:58
Insulin Pump Settings
IP Diabetes Regimen
09/15/23 09/15/23 09/15/23
05:58 11:52 16:42
Glucose 332 H
POC Glucose 253 H 264 H
09/15/23 09/16/23
22:34 05:18
Glucose 249 H
POC Glucose 180 H
Patient Education
[2023-09-16 08:18] VITALS: BP 157/82
[2023-09-16 08:34] LABS: Glucose - Point of Care 191 mg/dl (70-99)
[2023-09-16] MEDS: THERAGRAN 1 TABLET PO (08:48)
[2023-09-16] MEDS: NEURONTIN 300 MG PO ×2 (08:48→20:37)
[2023-09-16] MEDS: CYMBALTA DELAYED RELEASE 60 MG PO (08:49)
[2023-09-16] MEDS: LOPRESSOR 25 MG PO ×2 (08:49→20:37)
[2023-09-16] MEDS: GLUCOPHAGE 1000 MG PO ×2 (08:49→18:48)
[2023-09-16] MEDS: NOVOLOG FLEXPEN-MODERATE RESISTANCE SC ×2 (08:50→15:15)
[2023-09-16] MEDS: NOVOLOG FLEXPEN SC (08:50)
[2023-09-16] MEDS: NOVOLOG FLEXPEN-MODERATE RESISTANCE 1 UNITS SC (09:39)
[2023-09-16] MEDS: NOVOLOG FLEXPEN 7 UNITS SC ×3 (09:39→18:44)
[2023-09-16 12:06] VITALS: BP 160/84
[2023-09-16] MEDS: JANUVIA 100 MG PO (12:15)
--- NOTE | 2023-09-16 12:38 | W.PN.PUL3 ---
Today's Communication / Plan
-
Systemic AC with Eliquis
No additional vascular interventions per surgery
Continue with lower extremity compression as recommended by vascular surgery
Pain control
Maintain SpO2 >90 - 94%
No additional recommendations at this time. Pulmonary service will now sign off. Please reconsult if there are any additional questions/concerns, or if patient's respiratory status deteriorates.
Assessment
-
68-year-old male with history of suspected unprovoked bilateral PE and DVT in 2019, on anticoagulation at that time, did not follow-up as recommended, now presents with progressive right lower extremity swelling after identification 09/10, treated
with Eliquis as an outpatient. Patient turned on heparin therapy. We were asked to help from critical care standpoint.
Extensive bilateral DVT
Common iliac, external iliac, common femoral vein
Progressive symptoms x 1 week
Pulmonary embolism with right lower lobe clot, suspected web appearing, suggestive of chronic embolus; no Rt heart strain and without cor pulmonale
History of bilateral PE, extensive left lower extremity DVT
Status post lysis catheter placement left lower extremity 07/22/19
Hx of thrombus involving IVC R/L lobar pulmonary arteries, subsegmental artery, left common femoral, external iliac and common iliac vein (07/2019)
Mild hyponatremia - resolved
Conditions present prior to admission
Chronic back pain
Distant tobacco history
Suspected sleep disorder breathing
Mother at 45, unclear reasons
Sudden
Plan/recommendations
At this time, patient appears to be comfortable without acute symptoms
Reviewed extensive history in the past including multiple ER visits since his clot in 2019. He presented to the ED multiple times with lower extremity leg pain, Doppler studies at that time negative
Given imaging findings of extensive clot in the common iliac, femoral and external iliac, wonder if he has had pelvic clot chronically
Patient never did follow-up with imaging, repeat ultrasound, echocardiogram, CT imaging after his initial clot in 2019
Moving forward
Continue with systemic AC, currently on Eliquis
Patient will require lifelong anticoagulation
Given requirement for intravascular lytic therapy in 2019 and extensive clot, agree with vascular evaluation. Patient has improvement in symptomatology, so no lytic therapy planned at this time and vascular surgery signed off today
Echo performed yesterday shows normal RV size and function with no significant valvular pathology, with no regional WMA and preserved LVEF of 55 to 60% - no need to repeat this unless symptoms change
No evidence of RV strain per CT chest
I recommended to the patient in front of his family today to follow-up with hematology as an outpatient for hypercoagulable workup as well as discussion of AC duration
Patient doing well from pulmonary standpoint; breathing comfortably on room air with SpO2 98%. No additional recommendations at this time. Pulmonary service will now sign off. Thank you for allowing us to be involved in the care of this patient.
Please reconsult if there are any additional questions/concerns, or if patient's respiratory status deteriorates.
Subjective Data
-
Date of Service:
Date of Service: September 16, 2023
Chief Complaint: Pulmonary Follow Up
Subjective:
Patient seen and evaluated today at bedside. Family at bedside as well. He is on room air breathing comfortably. Denies shortness of breath, cough, headache, fevers or chills.
Review of Systems
General: Other (Negative unless mentioned above)
Objective Data
Data Reviewed
Vital Signs / I&O / Oxygen:
Vital Signs
Temp Pulse Resp BP Pulse Ox
97.8 F 84 16 160/84 98
09/16/23 12:06 09/16/23 12:06 09/16/23 12:06 09/16/23 12:06 09/16/23 12:06
Intake and Output
09/15/23 09/16/23 09/17/23
06:59 06:59 06:59
Intake Total 705 / 705
Output Total 900 / 900 325 / 325
Balance -900 / -900 380 / 380
SaO2 98
Physical Exam
General: Respiratory Distress (Negative) and Comfortable
HEENT: Normocephalic and Anicteric
Cardiovascular: S1-S2 and Peripheral Edema (Negative)
Respiratory: Wheeze (Negative), Crackles (Negative), Rhonchi (Negative) and Non-Labored Respirations
GI: Soft, Non Distended, Non Tender and Normal Bowel Sounds
Neurology: Awake and Alert
Skin: Warm, Dry and Other (RLE is covered with bandage)
Labs/Micro/Reports
Lab Data
09/16/23 05:18
09/16/23 05:18
Laboratory Results
09/16/23
05:18
APTT 112.4 H
[2023-09-16 12:40] LABS: Glucose - Point of Care 247 mg/dl (70-99)
[2023-09-16 12:52] LABS: APTT 60.5 Sec (23.4-35.0)
--- NOTE | 2023-09-16 14:38 | CM ---
Patient seen at bedside with family member present. Patient spouse had questions about prescription for Jobs stockings and She indicated that they does not anticipate any needs for discharge at this time.
Plan; home with no needs; JOBs stocking script with family.
[2023-09-16 14:50] LABS: Glucose - Point of Care 180 mg/dl (70-99)
[2023-09-16 15:48] VITALS: BP 151/79
[2023-09-16] MEDS: NOVOLOG FLEXPEN-MODERATE RESISTANCE 3 UNITS SC (18:44)
[2023-09-16 18:45] LABS: Glucose - Point of Care 228 mg/dl (70-99)
--- NOTE | 2023-09-16 18:59 | W.PN.HOSP.TC ---
Today's Communication/Plan
-
Transition off of IV heparin to Eliquis and monitor.
Adjust diabetic regimen including insulin. Continue diabetic teaching.
Assessment / Plan
Assessment / Plan
Impression:
Bilateral DVT.
Pulmonary embolism with likely chronic right lower lobe clot.
Prior history of bilateral PE and left lower extremity DVT requiring lytic treatment along with endovascular intervention with stent in place 2019. 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
Mild hyponatremia
Hyperkalemia
Other conditions:
Chronic back pain requiring opiates
Former tobacco smoker.
Suspected sleep apnea not on BiPAP
Plan:
Bilateral lower extremity DVT
Right lower lobe PE likely chronic
Doppler 09/11:Nonocclusive thrombus is present from the right common femoral vein through the distal right femoral vein.
Doppler 09/13 1. Nearly occlusive acute deep venous thrombosis from the external iliac vein through the posterior tibial vein.
2. Comparison with the prior study is limited, as the external iliac vein was not imaged on prior ultrasound. Consider CT venogram to evaluate the proximal extent of pelvic thrombus, as clinically appropriate.
Chest/abdomen/pelvis CTA:
1. 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
2. Mild to moderate bilateral lower lobe subsegmental atelectasis and scarring.
3. Mildly decreased bilateral lung volumes.
4. Multinodular thyroid goiter.
ABDOMEN and PELVIS:
1. No definitive CT evidence for acute deep venous thrombosis. Symmetric attenuation throughout the common iliac, external iliac, and common femoral veins without definitive evidence for focal intraluminal filling defect. Diffuse deep venous
thrombosis throughout the iliac and femoral veins is considered less likely.
2. Left external iliac vein stent in place.
3. Severe diffuse hepatic steatosis.
4. Previous cholecystectomy.
5. Moderately enlarged prostate gland.
6. Moderate discogenic degenerative disease at L3/L4 and L4/L5.
Vascular surgery consult appreciated
Clinically no evidence of limb ischemia or phlegmasia, hemodynamic instability, hypoxia, RV strain on imaging.
Echocardiogram with preserved biventricular function with normal RV and pulmonary artery pressure.
No indication for thrombolytic or endovascular treatment at this point
Transition of IV heparin to Eliquis
Diabetes, untreated
Hemoglobin A1c 9.2.
Patient has been treated with metformin, although reports not to take any oral medications or monitoring blood glucose for over 2 years.
Initiated on insulin: Lantus 15 units at bedtime/aspart 7 units AC
Initiated on Januvia and metformin.
Diabetes teaching
Hyperkalemia likely related to SASHA inhibitor shock
Hold lisinopril, status post Lokelma with improved potassium. Monitor
Essential hypertension continue metoprolol hold lisinopril due to hyperkalemia
Chronic back pain
Continue preadmission regimen including hydrocortisone/Tylenol
Anticipated Discharge: 24 - 48 hours
Subjective/Interval History
-
Date of Service: September 16, 2023
Objective Data
-
Labs:
Laboratory Results
09/16/23 09/16/23
12:32 19:45
APTT 60.5 H Pending
Vital Signs:
Vital Signs
Temp Pulse Resp BP Pulse Ox
98.7 F 79 16 151/79 98
09/16/23 15:48 09/16/23 15:48 09/16/23 15:48 09/16/23 15:48 09/16/23 15:48
I&O
09/15/23 09/16/23 09/17/23
06:59 06:59 06:59
Intake Total 705 / 705 480 / 480
Output Total 900 / 900 325 / 325
Balance -900 / -900 380 / 380 480 / 480
Physical Exam
-
General: Well Developed and No Apparent Distress
HEENT: Normocephalic, Atraumatic and Moist Mucous Membranes
Respiratory: Clear to Auscultation
Cardiac: Regular Rhythm and S1/S2; Negative Murmur, Rub or Gallop
GI: Soft, Nontender, Nondistended and Normal Bowel Sounds; Negative Organomegaly
Rectal: Deferred by Provider
Musculoskeletal: No Clubbing, No Cyanosis, No Edema and Other (Right lower extremity edema)
Skin: Negative Rash
Neuro: Nonfocal/Grossly Intact
[2023-09-16 19:17] VITALS: BP 158/85
[2023-09-16] MEDS: ELIQUIS 10 MG PO (20:36)
[2023-09-16 21:30] LABS: Glucose - Point of Care 225 mg/dl (70-99)
[2023-09-16] MEDS: LANTUS 0.149999999999999994 UNITS SC (21:39)
[2023-09-16 23:16] VITALS: BP 142/77
[2023-09-17 03:04] VITALS: BP 141/77
[2023-09-17 06:49] LABS: % Basophils 0.5 % (0-2); % Eosinophils 3.8 % (0-6); % Immature Granulocytes 0.6 % (0-0.5); % Lymphocytes 35.9 % (20.5-51.1); % Monocytes 8.4 % (1.7-9.3); % Neutrophils 50.8 % (42.2-75.2); Absolute Eosinophils 0.3 10^3/uL (0-0.7); Absolute Lymphocytes 2.4 10^3/uL (1.2-3.4); Absolute Monocytes 0.6 10^3/uL (0.1-0.6); Absolute Neutrophils 3.3 10^3/uL (1.4-6.5); Hematocrit 40.8 % (39.0-52.0); Hemoglobin 13.7 g/dL (13.0-18.0); Mean Corp Hgb Conc. 33.6 g/dL (33.0-37.0); Mean Corpuscular Hgb 30.3 pg (27.0-31.0); Mean Corpuscular Volume 90.3 fL (80.0-94.0); Mean Platelet Volume 9.3 fL (7.4-10.4); Nucleated Red Blood Cells % 0 % (-); Platelet Count 193 10^3/uL (130-400); Red Blood Cell Count 4.52 10^6/uL (4.70-6.10); Red Cell Dist. Width 12.2 % (11.5-14.5); White Blood Cell Count 6.5 10^3/uL (4.8-10.8)
[2023-09-17 07:14] LABS: Blood Urea Nitrogen 14 mg/dl (9-20); Calcium 9.7 mg/dl (8.4-10.2); Carbon Dioxide 25 mmol/L (22-30); Chloride 101 mmol/L (98-107); Estimated Creatinine Clearance > 125 ml/min; Glucose 145 mg/dl (70-99); Potassium 4.5 mmol/L (3.5-5.1); Sodium 136 mmol/L (135-145); eGFR > 60.00
[2023-09-17 07:54] VITALS: BP 127/66
[2023-09-17] MEDS: NOVOLOG FLEXPEN 7 UNITS SC (08:22)
[2023-09-17 08:23] LABS: Glucose - Point of Care 161 mg/dl (70-99)
[2023-09-17] MEDS: NOVOLOG FLEXPEN-MODERATE RESISTANCE 1 UNITS SC (08:23)
[2023-09-17] MEDS: CYMBALTA DELAYED RELEASE 60 MG PO (08:23)
[2023-09-17] MEDS: JANUVIA 100 MG PO (08:24)
[2023-09-17] MEDS: LOPRESSOR 25 MG PO ×2 (08:24→21:24)
[2023-09-17] MEDS: NEURONTIN 300 MG PO ×2 (08:24→21:24)
[2023-09-17] MEDS: THERAGRAN 1 TABLET PO (08:24)
[2023-09-17] MEDS: GLUCOPHAGE 1000 MG PO ×2 (08:24→16:46)
[2023-09-17] MEDS: ELIQUIS 10 MG PO ×2 (08:24→21:24)
--- NOTE | 2023-09-17 11:12 | W.PN.HOSP.TC ---
Today's Communication/Plan
-
Monitor vital signs and see plan
manager beauty to find cost of Eliquis
Continue with insulin
hopeful dc by tomorrow
Assessment / Plan
Assessment / Plan
Impression:
Bilateral DVT.
Pulmonary embolism with likely chronic right lower lobe clot.
Prior history of bilateral PE and left lower extremity DVT requiring lytic treatment along with endovascular intervention with stent in place 2019. 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
Mild hyponatremia
Hyperkalemia
Other conditions:
Chronic back pain requiring opiates
Former tobacco smoker.
Suspected sleep apnea not on BiPAP
Plan:
Bilateral lower extremity DVT
Right lower lobe PE likely chronic
Doppler 09/11:Nonocclusive thrombus is present from the right common femoral vein through the distal right femoral vein.
Doppler 09/13 1. Nearly occlusive acute deep venous thrombosis from the external iliac vein through the posterior tibial vein.
2. Comparison with the prior study is limited, as the external iliac vein was not imaged on prior ultrasound. Consider CT venogram to evaluate the proximal extent of pelvic thrombus, as clinically appropriate.
Chest/abdomen/pelvis CTA:
1. 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
2. Mild to moderate bilateral lower lobe subsegmental atelectasis and scarring.
3. Mildly decreased bilateral lung volumes.
4. Multinodular thyroid goiter.
ABDOMEN and PELVIS:
1. No definitive CT evidence for acute deep venous thrombosis. Symmetric attenuation throughout the common iliac, external iliac, and common femoral veins without definitive evidence for focal intraluminal filling defect. Diffuse deep venous
thrombosis throughout the iliac and femoral veins is considered less likely.
2. Left external iliac vein stent in place.
3. Severe diffuse hepatic steatosis.
4. Previous cholecystectomy.
5. Moderately enlarged prostate gland.
6. Moderate discogenic degenerative disease at L3/L4 and L4/L5.
Vascular surgery consult appreciated
Clinically no evidence of limb ischemia or phlegmasia, hemodynamic instability, hypoxia, RV strain on imaging.
Echocardiogram with preserved biventricular function with normal RV and pulmonary artery pressure.
No indication for thrombolytic or endovascular treatment at this point
Transition of IV heparin to Eliquis
Diabetes, untreated
Hemoglobin A1c 9.2.
Patient has been treated with metformin, although reports not to take any oral medications or monitoring blood glucose for over 2 years.
Initiated on insulin: Lantus 15 units at bedtime/aspart 7 units AC
Initiated on Januvia and metformin.
Diabetes teaching
Hyperkalemia likely related to SASHA inhibitor shock
Hold lisinopril, status post Lokelma with improved potassium. Monitor
Essential hypertension continue metoprolol hold lisinopril due to hyperkalemia
Chronic back pain
Continue preadmission regimen including hydrocortisone/Tylenol
General: Well Developed and No Apparent Distress
HEENT: Normocephalic, Atraumatic and Moist Mucous Membranes
Respiratory: Clear to Auscultation
Cardiac: Regular Rhythm and S1/S2; Negative Murmur, Rub or Gallop
GI: Soft, Nontender, Nondistended and Normal Bowel Sounds; Negative Organomegaly
Rectal: Deferred by Provider
Musculoskeletal: No Clubbing, No Cyanosis, No Edema and Other (Right lower extremity edema)
Skin: Negative Rash
Neuro: Nonfocal/Grossly Intact
Anticipated Discharge: Within 24 hours
Subjective/Interval History
-
Date of Service: September 17, 2023
denies pain
Objective Data
-
Labs:
Laboratory Results
09/17/23
06:38
WBC 6.5
Hgb 13.7
Hct 40.8
Plt Count 193
Sodium 136
Potassium 4.5
Chloride 101
Carbon Dioxide 25
BUN 14
Creatinine 0.7
Glucose 145 H
Calcium 9.7
Vital Signs:
Vital Signs
Temp Pulse Resp BP Pulse Ox
98.1 F 69 16 127/66 99
09/17/23 07:54 09/17/23 08:24 09/17/23 07:54 09/17/23 08:24 09/17/23 07:54
I&O
09/16/23 09/17/23 09/18/23
06:59 06:59 06:59
Intake Total 705 / 705 720 / 720
Output Total 325 / 325
Balance 380 / 380 720 / 720
[2023-09-17 11:31] VITALS: BP 134/76
[2023-09-17 12:29] LABS: Glucose - Point of Care 214 mg/dl (70-99)
[2023-09-17 12:47] VITALS: BP 156/77; BP 171/94; PULSE 70; O2SAT 98
[2023-09-17] MEDS: NOVOLOG FLEXPEN-MODERATE RESISTANCE 3 UNITS SC ×2 (13:19→16:47)
[2023-09-17] MEDS: NOVOLOG FLEXPEN SC (13:22)
[2023-09-17 15:54] VITALS: BP 151/77
[2023-09-17] MEDS: NOVOLOG FLEXPEN 8 UNITS SC (16:47)
[2023-09-17 16:49] LABS: Glucose - Point of Care 224 mg/dl (70-99)
[2023-09-17 21:28] LABS: Glucose - Point of Care 157 mg/dl (70-99)
[2023-09-17] MEDS: LANTUS 0.170000000000000012 UNITS SC (21:51)
[2023-09-17 23:51] VITALS: BP 126/94
[2023-09-18 06:53] LABS: Hematocrit 39.2 % (39.0-52.0); Hemoglobin 13.8 g/dL (13.0-18.0); Mean Corp Hgb Conc. 35.2 g/dL (33.0-37.0); Mean Corpuscular Volume 88.1 fL (80.0-94.0); Mean Platelet Volume 9.3 fL (7.4-10.4); Platelet Count 208 10^3/uL (130-400); Red Blood Cell Count 4.45 10^6/uL (4.70-6.10); Red Cell Dist. Width 12.3 % (11.5-14.5); White Blood Cell Count 7.5 10^3/uL (4.8-10.8)
[2023-09-18 07:00] VITALS: BP 121/62
--- NOTE | 2023-09-18 07:52 | PN.DE.MGMTRT ---
Insulin Management
- -
09/18/2023: Diabetes management Consult Follow up
Patient admitted 09/13 RLE swelling, diffuse deep vein thrombosis. PMH: HTN, HLD, Obesity, hx of BLE PE, unprovoked DVT- 2019 requiring intra lytic therapy in the lower extremity, essential tremor, chronic back pain, strongly suspected sleep apnea
and T2DM. Was in ED for same 09/11 and started on Eliquis as outpatient.
Of note, pt is supposed to be taking Metformin 500mg BID, however, there is concern for medication compliance.
Upon interview, pt reports that he was dx a few years ago but was not started on any diabetes medications. He was recently started on Metformin 500mg BID after he was identified with Hyperglycemia during one of the ER visits. He reports that he has
a glucose meter and has been monitoring his blood sugars once a day at Fasting. A1C 9.2%, Cr 0.8, eGFR>60
Metformin 1000 started 09/14, lantus increased to 15 units @ hs with AC novolog 7 units and Januvia 100 mg daily.
Diet changed to 1800 calorie
09/16 glucose range 145 to 224 on 8 units novolog AC required +3 corrective insulin. Will increase AC novolog to 10 units, change moderate corrective to low, continue lantus 17 units @ HS.
Patient has been instructed on step by step prep and injection technique, nursing reinforcing.
Pt has working meter at home.
Diabetes History
- -
Type of Diabetes: 2 requiring insulin
Pre-Admission Diabetes Regimen
Lab Results
Hemoglobin A1c 9.2 % (4.0-5.6) H 09/15/23 05:58
Insulin Pump Settings
IP Diabetes Regimen
09/17/23 09/17/23 09/17/23
08:22 12:28 16:47
POC Glucose 161 H 214 H 224 H
09/17/23
21:27
POC Glucose 157 H
Patient Education
[2023-09-18] MEDS: JANUVIA 100 MG PO (08:16)
[2023-09-18] MEDS: ELIQUIS 10 MG PO (08:16)
[2023-09-18] MEDS: GLUCOPHAGE 1000 MG PO (08:17)
[2023-09-18] MEDS: CYMBALTA DELAYED RELEASE 60 MG PO (08:17)
[2023-09-18] MEDS: THERAGRAN 1 TABLET PO (08:17)
[2023-09-18] MEDS: NEURONTIN 300 MG PO (08:17)
[2023-09-18] MEDS: LOPRESSOR 25 MG PO (08:17)
[2023-09-18] MEDS: NOVOLOG FLEXPEN SC (08:43)
[2023-09-18] MEDS: NOVOLOG FLEXPEN-MODERATE RESISTANCE SC (08:44)
[2023-09-18 08:47] LABS: Glucose - Point of Care 145 mg/dl (70-99)
[2023-09-18] MEDS: NOVOLOG FLEXPEN-LOW RESISTANCE SC (09:07)
--- NOTE | 2023-09-18 10:51 | CM ---
Addendum entered by JULIA Griffin 09/18/23 12:47:
Placed a call to [facility] pharmacy in [place] to attempt to obtain a varela on Eliquis for patient. Spoke with a pharmacist named Leigh who stated the following (which was texted to attending): 'on 09/11 the RX was sent in to [facility] as 5mg 2 BID for [address] Jenn Strong, but the insurance would only take it as a 14 day supply as it maxed out at two tablets a day. He picked up his quantity then. The insurance won't cover another script for Eliquis'.
If a starter pack is prescribed that would be covered and the cost would be 4.20. Loose tablets won't be covered until 09/23.
As this is the case, patient will have enough Eliquis for discharge and be able to filler picker more on or after 09/23.
Met with patient to explain. His was at bedside. They both confirmed that patient has the Eliquis and will filler picker more when it is time to obtain the medication.
Original Note:
Received consult for cost of Eliquis 5mg BID. Per [email or web address] patient has no coverage for Eliquis. Will discuss with attending.
Plan: Case management will continue to assist with discharge planning. Patient needs Anticoagulant will update attending about potential costs.
[2023-09-18] MEDS: NOVOLOG FLEXPEN 10 UNITS SC ×2 (10:55→12:40)
[2023-09-18 11:48] LABS: Glucose - Point of Care 208 mg/dl (70-99)
--- NOTE | 2023-09-18 11:48 | W.PN.HOSP.TC ---
Addendum entered and electronically signed by Sudhakar Dunn MD 09/18/23 12:46:
Time of discharge 39 minutes
Original Note:
Today's Communication/Plan
-
Monitor vital signs see plan
credit relationship manager to find the cost of Eliquis
Continue with insulin, p.o. diabetes meds
Discharge today
Assessment / Plan
Assessment / Plan
Impression:
Bilateral DVT.
Pulmonary embolism with likely chronic right lower lobe clot.
Prior history of bilateral PE and left lower extremity DVT requiring lytic treatment along with endovascular intervention with stent in place 2019. Anticoagulation has been discontinued/not anticoagulation [employer], failed to follow-up.
Mild hyponatremia
Hyperkalemia
Other conditions:
Chronic back pain requiring opiates
Former tobacco smoker.
Suspected sleep apnea not on BiPAP
Plan:
Bilateral lower extremity DVT
Right lower lobe PE likely chronic
Doppler 09/11:Nonocclusive thrombus is present from the right common femoral vein through the distal right femoral vein.
Doppler 09/13 1. Nearly occlusive acute deep venous thrombosis from the external iliac vein through the posterior tibial vein.
2. Comparison with the prior study is limited, as the external iliac vein was not imaged on prior ultrasound. Consider CT venogram to evaluate the proximal extent of pelvic thrombus, as clinically appropriate.
Chest/abdomen/pelvis CTA:
1. 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
2. Mild to moderate bilateral lower lobe subsegmental atelectasis and scarring.
3. Mildly decreased bilateral lung volumes.
4. Multinodular thyroid goiter.
ABDOMEN and PELVIS:
1. No definitive CT evidence for acute deep venous thrombosis. Symmetric attenuation throughout the common iliac, external iliac, and common femoral veins without definitive evidence for focal intraluminal filling defect. Diffuse deep venous
thrombosis throughout the iliac and femoral veins is considered less likely.
2. Left external iliac vein stent in place.
3. Severe diffuse hepatic steatosis.
4. Previous cholecystectomy.
5. Moderately enlarged prostate gland.
6. Moderate discogenic degenerative disease at L3/L4 and L4/L5.
Vascular surgery consult appreciated
Clinically no evidence of limb ischemia or phlegmasia, hemodynamic instability, hypoxia, RV strain on imaging.
Echocardiogram with preserved biventricular function with normal RV and pulmonary artery pressure.
No indication for thrombolytic or endovascular treatment at this point
Transitioned of IV heparin to Eliquis
case management director to find cost of eliquis
Diabetes, untreated
Hemoglobin A1c 9.2.
Patient has been treated with metformin, although reports not to take any oral medications or monitoring blood glucose for over 2 years.
Initiated on insulin: Lantus 17 units at bedtime/aspart 10 units AC
Initiated on Januvia and metformin.
Diabetes teaching
Hyperkalemia likely related to SASHA inhibitor shock
Hold lisinopril, status post Lokelma with improved potassium. Monitor
Essential hypertension continue metoprolol hold lisinopril due to hyperkalemia
Chronic back pain
Continue preadmission regimen including hydrocortisone/Tylenol
General: Well Developed and No Apparent Distress
HEENT: Normocephalic, Atraumatic and Moist Mucous Membranes
Respiratory: Clear to Auscultation
Cardiac: Regular Rhythm and S1/S2; Negative Murmur, Rub or Gallop
GI: Soft, Nontender, Nondistended and Normal Bowel Sounds; Negative Organomegaly
Rectal: Deferred by Provider
Musculoskeletal: No Clubbing, No Cyanosis, No Edema and Other (Right lower extremity edema)
Skin: Negative Rash
Neuro: Nonfocal/Grossly Intact
Anticipated Discharge: Today
Subjective/Interval History
-
Date of Service: September 18, 2023
denies pain
Objective Data
-
Labs:
Laboratory Results
09/18/23
06:36
WBC 7.5
Hgb 13.8
Hct 39.2
Plt Count 208
Vital Signs:
Vital Signs
Temp Pulse Resp BP Pulse Ox
98.5 F 69 16 121/62 97
09/18/23 07:00 09/18/23 08:17 09/18/23 07:00 09/18/23 08:17 09/18/23 07:00
I&O
09/17/23 09/18/23 09/19/23
06:59 06:59 06:59
Intake Total 720 / 720 1440 / 1440
Balance 720 / 720 1440 / 1440
[2023-09-18] MEDS: NOVOLOG FLEXPEN-LOW RESISTANCE 2 UNITS SC (12:41)
--- NOTE | 2023-09-18 12:45 | W.DCSUMMARY ---
Discharge Summary
Discharge Data
Date of Admission: 09/14/23
Date of Discharge: 09/18/23
-
Pending Results: No
Hospital Course
68-year-old male with past medical history of DVT, PE, hypertension, chronic back pain, arthritis, diabetes mellitus came to the hospital with worsening lower extremity pain and swelling. Patient was initially discharged from the ED after being
diagnosed with DVT on Eliquis. On admission venous ultrasound was consistent with extensive DVT. Vascular surgery was then consulted for further intervention. Upon vascular surgery evaluation, there was no clinical evidence of limb ischemia or
phlegmasia so vascular surgery recommended compression along with anticoagulation rather than lysis. Patient also had CT scan which was consistent with pulmonary embolism which per pulmonary appeared to be chronic embolus. Patient was initially on
IV heparin which was later transitioned to oral Eliquis. While he was in the hospital he also had uncontrolled sugars with diabetes. He was seen by diabetes nurse practitioner. He was then started on insulin along with oral diabetes medications.
He also had hyperkalemia for which his lisinopril was held. On discharge instructed to restart lisinopril when his blood pressure is high. Once patient symptoms continue to improve and he tolerated Eliquis well, he was then discharged home with
instructions to follow-up with all his physicians outpatient.
Discharge Plan
-
Patient Disposition: Home (Routine Discharge)
Discharge Diagnosis/Procedures: Bilateral DVT
Pulmonary embolism with likely chronic right lower lobe clot
Uncontrolled diabetes mellitus
Condition: Fair
Diet: As tolerated
Activity: As tolerated
Driving Restrictions: As prior to admission
Bathing Restrictions: None
Referrals:
Shashi Varner MD [Active] -
(3 months
Will require additional testing from pulmonary standpoint
Full PFT, HST, eventual workup for chronic thromboembolic disease)
Gabino Ferguson DO [Active] -
Linsey Gabriel CRNP [Specified Professional Personl] -
Camron Gutierrez MD [Family Provider] - in less than 1 week
Denzel Harry MD [Active] -
Prescriptions:
New
Eliquis 5 mg Tablet
10 mg PO BID Qty: 60 0RF
Rx Instructions:
take 10mg until 09/23/23 morning dose.
starting 09/23/23 evening dose reduce to 5mg BID
metformin 1,000 mg Tablet
1,000 mg PO BID@0800,1700 Qty: 60 0RF
Januvia 100 mg Tablet
100 mg PO DAILY Qty: 30 0RF
insulin lispro [Humalog KwikPen Insulin] 100 unit/mL Insulin Pen
10 unit SC AC Qty: 5 0RF
insulin glargine [Lantus Solostar U-100 Insulin] 100 unit/mL (3 mL) Insulin Pen
17 unit SC HS Qty: 5 0RF
(DME) blood-glucose meter [Contour Next One Meter] Misc
Qty: 1 0RF
Rx Instructions:
As Directed
(DME) Contour Next Test Strips Strip
Qty: 200 0RF
Rx Instructions:
As Directed
(DME) lancets [Color Lancets] 21 gauge Misc
Qty: 200 0RF
Rx Instructions:
As Directed
Continued
metoprolol tartrate 25 MG tablet
25 mg PO BID
hydrocodone-acetaminophen 5-325 mg Tablet
1 tab PO Q6H PRN (Reason: moderate pain)
therapeutic multivitamin Tablet
1 tab PO DAILY
capsaicin 0.025 % Cream
1 applic TOPICAL BID
duloxetine 60 mg Capsule,Delayed Release(Dr/Ec)
60 mg PO DAILY
Fish Oil 2,400 mg capsule
1 cap PO DAILY
Tow 3 2,500 mg capsule
1 cap PO DAILY
gabapentin 300 MG capsule
300 mg PO BID
Held
lisinopril 20 mg Tablet
20 mg PO DAILY
Hold Instructions: Restart when blood pressure greater than 140/90
Discontinued
Eliquis 5 mg tablet
10 mg PO BID 7 Days Qty: 28 0RF
Patient Comments:
09/14/2023, 10 mg BID for 7 days and then decrease to 5 mg.
Discharge Orders:
Discharge Patient (As Directed); Ordered 09/18/23
Ordered By: Sudhakar Dunn
Discharge Date and Time
Discharge Date/Time: 09/18/23 15:38
Print Language: MALAWIAN
[2023-09-18 14:34] VITALS: BP 128/69
[2023-09-18 15:04] LABS: Glucose - Point of Care 252 mg/dl (70-99)
[2023-09-18] MEDS: ZOFRAN 4 MG PO (15:20)
== END 2023-09-18 15:38 | disposition home or self-care (01) | DRG 300 ==
LOC: 3 WEST ACU 20:18
PROVIDERS: Clinical Nurse Specialist Family Health; Internal Medicine; Physician Assistant Medical; Surgery Vascular Surgery; ADMITTING PHYSICIAN Hospitalist; ATTENDING PHYSICIAN Internal Medicine; CONSULT PHYSICIAN Internal Medicine Critical Care Medicine; EMERGENCY PHYSICIAN Emergency Medicine; FAMILY PHYSICIAN Family Medicine; OTHER PHYSICIAN Surgery Vascular Surgery
DX: I82.413 Acute embolism and thrombosis of femoral vein, bilateral (principal); I27.82 Chronic pulmonary embolism; Z87.891 Personal history of nicotine dependence; G89.29 Other chronic pain; M54.9 Dorsalgia, unspecified; I10 Essential (primary) hypertension; E87.5 Hyperkalemia; E11.65 Type 2 diabetes mellitus with hyperglycemia
CPT/HCPCS: 71275; 74177; 80048; 82962; 83036; 83735; 84100; 85025; 85027; 85610; 85730; 93005; 93306; 93971; 97163; 97167; 97530; 99291; Q9950; Q9967

== ENCOUNTER → 2024-03-17 14:06 | Outpatient (REF) | payer MEDICARE, OTHER, SELFPAY | LOC: RAD 14:06 | PROVIDERS: ATTENDING PHYSICIAN Nurse Practitioner Adult Health; FAMILY PHYSICIAN Family Medicine | DX: I82.413 Acute embolism and thrombosis of femoral vein, bilateral (principal) | CPT/HCPCS: 93970 ==

== ENCOUNTER 2024-11-10 05:03 | Emergency (ER) | payer MEDICARE, OTHER, SELFPAY ==
[2024-11-10 05:06] VITALS: BP 151/73
[2024-11-10 05:16] VITALS: BMI 32.9
[2024-11-10 05:23] VITALS: BP 150/79
[2024-11-10 05:31] LABS: Glucose - Point of Care 148 mg/dl (70-99)
[2024-11-10 05:54] LABS: Hematocrit 40.6 % (39.0-52.0); Hemoglobin 13.6 g/dL (13.0-18.0); Mean Corp Hgb Conc. 33.5 g/dL (33.0-37.0); Mean Corpuscular Volume 89.8 fL (80.0-94.0); Nucleated Red Blood Cells % 0 % (-); Platelet Count 209 10^3/uL (130-400); Red Cell Dist. Width 12.8 % (11.5-14.5)
--- NOTE | 2024-11-10 05:55 | ED.GENMED ---
History of Present Illness
General
Chief Complaint: Gait Dysfunction
Source: patient, spouse and family
Exam Limitations: none
Time Seen by Provider: 11/10/24 05:53
History of Present Illness
History of Present Illness:
69-year-old male woke at about 4 AM to go to the bathroom. He noted his left leg was weak. This was not a generalized weakness. Specifically the left leg. No other focal symptoms were noted, denying facial droop speech issues visual issues upper
extremity weakness or other complaints. Feels symptoms have improved.
Past History
Past History
ED Past Medical History: HTN and Other (Chronic back pain, PE)
ED Past Surgical History: None
Social History
Tobacco: Non-smoker
Alcohol: None
Drug: None
Personal:
Living: with family
Family History
Family History: Negative Diabetes, Hypertension, Early CAD, Asthma or Cancer
Review of Systems
Review of Systems
All Other Systems: Not applicable
Constitutional: Denies fever or chills
Cardiac: Reports no symptoms
Neurological: Denies headache or numbness
Phy Exam
Physical Exam
Physical Exam:
GENERAL: Alert and oriented in no apparent distress
EYE: Orbits normal.
NECK: Supple, no carotid bruit
ENT: Pharynx without erythema
CARDIAC: Regular rate and rhythm without any obvious murmurs.
LUNGS: Clear breath sounds,normal
ABDOMEN: Soft, without focal tenderness or distention
NEUROLOGICAL: Alert and oriented , cranial nerves II through XII intact. Speech normal. Bttxen-ow-rpmk normal. No drift. Good lower extremity strength. Plantar dorsiflexion normal. Straight leg raise normal. Light touch intact. Eye
confrontation normal. Negative extinction. Ambulated normally to me although patient states he still feels like the leg is slightly off
SKIN: Warm and dry, no rash or lesion, no discoloration, skin intact.
MUSCULOSKELETAL: No edema,no deformity.Good color
PSYCH: Normal and appropriate interaction.
Course
Orders/Labs/Results
Orders:
Orders
11/10/24 05:25
EKG [Electrocardiogram (*1)] Urgent
Reason for Study: Fatigue / Weakness
Other Reason for Exam: feels that both legs are heavy
11/10/24 05:26
EKG- Treatment ONCE
11/10/24 05:44
Complete Blood Count/With Diff Urgent
Comprehensive Metabolic Panel Urgent
Troponin I Urgent
11/10/24 06:07
CT Head & Neck Angio W/wo IV Urgent
Comment:
Reason For Exam: Left leg weakness
Abnormal Lab Results
11/10/24 11/10/24
05:29 05:44
RBC 4.52 L 10^6/uL
(4.70-6.10)
Neutrophils % 41.4 L %
(42.2-75.2)
Monocytes % 9.6 H %
(1.7-9.3)
Glucose 130 H mg/dl
(70-99)
POC Glucose 148 H mg/dl
(70-99)
11/10/24 05:44
11/10/24 05:44
Vital Signs
Initial and Last Documented VS:
Initial Vital Signs
Temp Pulse Resp BP Pulse Ox
98.5 F 63 16 151/73 98
11/10/24 05:06 11/10/24 05:06 11/10/24 05:06 11/10/24 05:06 11/10/24 05:06
Last Documented Vital Signs
Temp Pulse Resp BP Pulse Ox
98.5 F 62 16 141/72 97
11/10/24 05:06 11/10/24 08:00 11/10/24 07:00 11/10/24 08:00 11/10/24 07:00
MDM/Problems Addressed
Differential Diagnosis Includes:
Although the triage notes general weakness, patient and family are specific that this was left lower extremity weakness. I cannot appreciate any positive findings on a neurologic exam although patient subjectively still feels like the leg is
slightly off. Patient is on Eliquis and faithful. This was a wake-up issue. Clearly not a thrombolytic candidate.
*Radiology
Radiology exam reviewed: radiology read reviewed (Cervical cord compression central canal stenosis degenerative changes multinodular goiter Chiari malformation plaque right ICA)
*Pulse Oximetry
SaO2: 100
Oxygen Mode of Delivery: Room air
Patient hypoxic: no
*EKG
Interpreted by ED Provider?: Yes
Interpretation: abnormal
Comparison EKG: changes noted
Heart Rate: 62
Rate: normal
Rhythm: sinus
[place]: normal axis
Interval: normal interval
QRS Pattern: left vent hypertrophy
Ischemia: T-wave inversion (Slightly progressed)
*Critical Care Note
Total Time (30-74mins, 75-104mins- exclusive of procedures): Not Applicable
Update Note
Update Note:
Seen and cleared by neurology. Start a statin. Copy of CT report will be given to patient for follow-up
ED Attending Note
-
Portions of this chart may have been created with voice recognition software.� Occasional wrong word or��sound alike� substitutions may have occurred due to the inherent limitations of voice recognition software.
Discharge Plan
Departure
Patient Disposition: Home (Routine Discharge)
Date of Disposition: 11/10/24
Time of Disposition: 09:36
Patient with high blood pressure during this ER visit?: Yes
Discharge Problem:
TIA, Cervical cord compression/stenosis, Incidental Chiari malformation, Multinodular goiter
Instructions: Nodular goiter, Transient ischemic attack - ED (DC), BLOOD PRESSURE
Prescriptions:
New
atorvastatin [Lipitor] 40 mg tablet
40 mg PO DAILY Qty: 30 0RF
No Action
metoprolol tartrate 25 MG tablet
25 mg PO BID
hydrocodone-acetaminophen 5-325 mg Tablet
1 tab PO Q6H PRN (Reason: moderate pain)
lisinopril 20 mg Tablet
20 mg PO DAILY
therapeutic multivitamin Tablet
1 tab PO DAILY
capsaicin 0.025 % Cream
1 applic TOPICAL BID
duloxetine 60 mg Capsule,Delayed Release(Dr/Ec)
60 mg PO DAILY
Fish Oil 2,400 mg capsule
1 cap PO DAILY
Coden 3 2,500 mg capsule
1 cap PO DAILY
gabapentin 300 MG capsule
300 mg PO BID
Eliquis 5 mg Tablet
10 mg PO BID Qty: 60 0RF
Rx Instructions:
take 10mg until 09/23/23 morning dose.
starting 09/23/23 evening dose reduce to 5mg BID
metformin 1,000 mg Tablet
1,000 mg PO BID@0800,1700 Qty: 60 0RF
(DME) blood-glucose meter [Contour Next One Meter] Misc
Qty: 1 0RF
Rx Instructions:
As Directed; ICD E11.9
(DME) Contour Next Test Strips Strip
Qty: 200 0RF
Rx Instructions:
As Directed; ICD E11.9
insulin lispro [Humalog KwikPen Insulin] 100 unit/mL Insulin Pen
10 unit SC AC Qty: 5 0RF
Rx Instructions:
ICD E11.9
Januvia 100 mg Tablet
100 mg PO DAILY Qty: 30 0RF
Rx Instructions:
ICD E11.9
insulin glargine [Lantus Solostar U-100 Insulin] 100 unit/mL (3 mL) Insulin Pen
17 unit SC HS Qty: 5 0RF
Rx Instructions:
ICD E11.9
(DME) lancets [Color Lancets] 21 gauge Misc
Qty: 200 0RF
Rx Instructions:
As Directed; ICD E11.9
Referrals:
Camron Gutierrez MD [Family Provider, Family Practice] - Follow up in 2-3 days
Activity Restrictions/Additional Instructions:
Follow-up your CAT scan findings with your primary physician.
We started you on a statin. The prescription was sent to your pharmacy
Interventions
Interventions:
*Risk Screen - Suicide Last Done: 11/10/24 05:06
*General Assessment Last Done: 11/10/24 05:06
*Neglect/Abuse Screening Last Done: 11/10/24 05:06
*ED- Fall Risk Assessment Last Done: 11/10/24 05:16
*ED COVID-19 Vaccine History Last Done: 11/10/24 05:16
*Nursing Disposition Last Done: 11/10/24 09:56
ED-Musculoskeletal Assessment Last Done: 11/10/24 05:16
ED- Neurological Assessment Last Done: 11/10/24 05:16
Discharge Date and Time
Discharge Date/Time: 11/10/24 09:59
Print Language: TAMAZIGHT
[2024-11-10 06:00] VITALS: BP 159/82
[2024-11-10 06:08] LABS: ALT (SGPT) 46 U/L (0-50); AST (SGOT) 33 U/L (17-59); Albumin 4.5 g/dl (3.5-5.0); Alkaline Phosphatase 40 U/L (38-126); Blood Urea Nitrogen 14 mg/dl (9-20); Calcium 10.0 mg/dl (8.4-10.2); Carbon Dioxide 29 mmol/L (22-30); Chloride 102 mmol/L (98-107); Estimated Creatinine Clearance 110 ml/min; Glucose 130 mg/dl (70-99); Potassium 4.6 mmol/L (3.5-5.1); Sodium 139 mmol/L (135-145); Total Protein 7.4 g/dl (6.3-8.2); eGFR > 60.00
[2024-11-10 06:18] LABS: Troponin I < 0.012 ng/ml
[2024-11-10 06:42] VITALS: BP 131/73
[2024-11-10 07:00] VITALS: BP 130/69
[2024-11-10 08:00] VITALS: BP 141/72
--- NOTE | 2024-11-10 11:34 | CON.NEURO ---
Neuro Assessment/Plan
Assessment
This is a fully resolved TIA
head CT imgs rev'd, no bleed
CTA head/neck imgs rev'd, No LVO, no significant stenosis
He is already on Eliquis for DVT which is also appropriate stroke prevention
Rx Lipitor 40 and he can go home
Consultation
Order
Date of Consultation: 11/10/24
Requesting Provider: Juan R
Reason for Consult: L leg weakness
Subjective/Objective
Subjective Data
Date of Service: November 10, 2024
from ED note:
69-year-old male woke at about 4 AM to go to the bathroom. He noted his left leg was weak. This was not a generalized weakness. Specifically the left leg. No other focal symptoms were noted, denying facial droop speech issues visual issues upper
extremity weakness or other complaints. Feels symptoms have improved.
at the time of my evaluation, deficits have resolved.
Objective Data
Vital Signs
Temp Pulse Resp BP Pulse Ox
36.9 C 62 16 141/72 97
11/10/24 05:06 11/10/24 08:00 11/10/24 07:00 11/10/24 08:00 11/10/24 07:00
Lab Results
11/10/24 05:44
11/10/24 05:44
Sodium 139 mmol/L (135-145) 11/10/24 05:44
Potassium 4.6 mmol/L (3.5-5.1) 11/10/24 05:44
BUN 14 mg/dl (9-20) 11/10/24 05:44
Glucose 130 mg/dl (70-99) H 11/10/24 05:44
Calcium 10.0 mg/dl (8.4-10.2) 11/10/24 05:44
Patient Allergies
No Known Allergies Allergy (Verified 09/12/23 19:58)
Physical Exam
-
NIHSS 0
AAOx3, speech clear, language intact
VFF, EOMI, face symmetric
full strength b/l UE/LE
sensation intact to touch/temp
Medications
-
Home Medications
�Medication �Instructions �Recorded
metoprolol tartrate 25 mg tablet 25 mg PO BID Blood Pressure 07/22/19
Fish Oil 1 cap PO DAILY Supplement 09/14/23
Wall 3 1 cap PO DAILY Supplement 09/14/23
capsaicin 0.025 % topical cream 1 applic topical BID right foot 09/14/23
duloxetine 60 mg capsule,delayed 60 mg PO DAILY Mental Health 09/14/23
release
gabapentin 300 mg capsule 300 mg PO BID Pain 09/14/23
hydrocodone 5 mg-acetaminophen 325 1 tab PO Q6H PRN moderate pain 09/14/23
mg tablet
lisinopril 20 mg tablet 20 mg PO DAILY Blood Pressure 09/14/23
Held on 09/18/23.
Instructions: Restart when
blood pressure greater than
140/90
therapeutic multivitamin 1 tab PO DAILY Supplement 09/14/23
apixaban 5 mg tablet (Eliquis) 10 mg (2 x 5 mg) PO BID #60 tabs 09/18/23
blood sugar diagnostic (Contour #200 ea 09/18/23
Next Test Strips)
blood-glucose meter (Contour Next #1 ea 09/18/23
One Meter)
insulin glargine 100 unit/mL (3 17 unit (0.17 mL) SC HS #5 ea 09/18/23
mL) subcutaneous pen (Lantus
Solostar U-100 Insulin)
insulin lispro 100 unit/mL 10 unit (0.1 mL) SC AC #5 ea 09/18/23
subcutaneous pen (Humalog KwikPen
(U-100) Insulin)
lancets 21 gauge (Color Lancets) #200 ea 09/18/23
metformin 1,000 mg tablet 1,000 mg PO BID@0800,1700 #60 tabs 09/18/23
sitagliptin phosphate 100 mg 100 mg PO DAILY #30 tabs 09/18/23
tablet (Januvia)
atorvastatin 40 mg tablet (Lipitor) 40 mg PO DAILY #30 tabs 11/10/24
== END 2024-11-10 09:59 | disposition home or self-care (01) ==
LOC: EMR 05:03
PROVIDERS: Emergency Medicine; EMERGENCY PHYSICIAN Emergency Medicine; FAMILY PHYSICIAN Family Medicine; OTHER PHYSICIAN Psychiatry & Neurology Clinical Neurophysiology
DX: G45.9 Transient cerebral ischemic attack, unspecified (principal); M50.023 Cervical disc disorder at C6-C7 level with myelopathy; G89.29 Other chronic pain; G93.5 Compression of brain; E04.2 Nontoxic multinodular goiter; I10 Essential (primary) hypertension; Z79.01 Long term (current) use of anticoagulants; Z79.899 Other long term (current) drug therapy
CPT/HCPCS: 99284; 70496; 70498; 80053; 82962; 84484; 85025; 93005; Q9967